=== PATIENT | female | born 1960 | race Caucasian/White ===

== ENCOUNTER 2024-01-31 09:58 | Outpatient (RCR) | payer BC, SELFPAY | END 2024-02-07 23:59 | disposition home or self-care (01) | LOC: OID 09:58 | PROVIDERS: ATTENDING PHYSICIAN Internal Medicine Endocrinology, Diabetes & Metabolism; FAMILY PHYSICIAN Family Medicine ==

== ENCOUNTER 2024-10-28 11:33 | Emergency (ER) | payer BC, SELFPAY ==
[2024-10-28 11:38] VITALS: BP 128/86
[2024-10-28 11:46] VITALS: BP 125/80
[2024-10-28 12:11] LABS: % Basophils 1.2 % (0-2); % Eosinophils 1.7 % (0-6); % Immature Granulocytes 0.5 % (0-0.5); % Lymphocytes 27.2 % (20.5-51.1); % Monocytes 18.8 % (1.7-9.3); % Neutrophils 50.6 % (42.2-75.2); Absolute Basophils 0.1 10^3/uL (0-0.2); Absolute Eosinophils 0.1 10^3/uL (0-0.7); Absolute Lymphocytes 1.8 10^3/uL (1.2-3.4); Absolute Monocytes 1.2 10^3/uL (0.1-0.6); Absolute Neutrophils 3.3 10^3/uL (1.4-6.5); Hematocrit 48.1 % (37.0-47.0); Hemoglobin 16.2 g/dL (12.0-16.0); Mean Corp Hgb Conc. 33.7 g/dL (33.0-37.0); Mean Corpuscular Hgb 30.9 pg (27.0-31.0); Mean Corpuscular Volume 91.6 fL (81.0-99.0); Mean Platelet Volume 9.7 fL (7.4-10.4); Nucleated Red Blood Cells % 0 %; Platelet Count 332 10^3/uL (130-400); Red Blood Cell Count 5.25 10^6/uL (4.20-5.40); Red Cell Dist. Width 13.1 % (11.5-14.5); White Blood Cell Count 6.6 10^3/uL (4.8-10.8)
[2024-10-28 12:38] LABS: Troponin I < 0.012 ng/ml
--- NOTE | 2024-10-28 12:49 | ED.GENMED ---
History of Present Illness
<Colt Michel DO - Last Filed: 10/28/24 14:24>
General
Chief Complaint: Cardiac Symptoms
Source: patient
Exam Limitations: none
Time Seen by Provider: 10/28/24 11:59
Nursing documentation reviewed up to this point in time: agreed with
History of Present Illness
History of Present Illness:
64-year-old female presents the emergency department complaining of chest pain that began 1 hour prior to arrival. It radiates to her back. She follows at [facility] for cardiology. She has no past cardiology history.
Past History
<Colt Michel DO - Last Filed: 10/28/24 14:24>
Past History
ED Past Medical History: Cancer (Breast)
Social History
Tobacco: Non-smoker
Alcohol: None
Drug: None
Personal:
Living: with family
Review of Systems
<Colt Michel, DO - Last Filed: 10/28/24 14:24>
Review of Systems
Allergies reviewed?: Yes
All Other Systems: Not applicable
Constitutional: Reports no symptoms
EENT: Reports no symptoms
Respiratory: Reports no symptoms
Cardiac: Reports chest pain
ABD/GI: Reports no symptoms
: Reports no symptoms
Musculoskeletal: Reports no symptoms
Skin: Reports no symptoms
Neurological: Reports no symptoms
Endocrine: Reports no symptoms
Hematologic/Lymphatic: Reports no symptoms
Psychiatric: Reports no symptoms
Phy Exam
<Colt Michel DO - Last Filed: 10/28/24 14:24>
Physical Exam
Physical Exam:
Physical Exam
General: no apparent distress, not acutely ill
Neck: supple. no meningeal signs. normal posterior pharynx
Heart: s1/s2 regular rate and rhythm, no murmur. equal radial
pulses.
HEENT: Pupils equal round reactive to light, EOMI
Lungs: no acute respiratory distress. clear bilaterally
Abdomen: normal bowel sounds. not tender. no CVAT
Neuro: alert and oriented. no focal neurological deficits cranial nerves II through XII intact
Skin: no rash
Psychiatric: well kept. interactive and cooperative
Extremities: no edema. no calf tenderness. negative homans. good distal pulses
Course
<Colt Michel, DO - Last Filed: 10/28/24 14:24>
Orders/Labs/Results
Orders:
Orders
10/28/24 11:34
Electrocardiogram (*1) Urgent
Reason for Study: Abdominal Pain
EKG- Treatment ONCE
10/28/24 12:01
Troponin I Urgent
10/28/24 12:02
Complete Blood Count/With Diff Urgent
10/28/24 12:34
IV Insert/Care/Rem.- Treatment PRN
10/28/24 12:40
Comprehensive Metabolic Panel Urgent
Lipase Urgent
10/28/24 12:50
EKG- Treatment ONCE
10/28/24 14:02
CT Chest/abd/pelvis Angio W/wo Urgent
Comment:
Reason For Exam: chest pain radiating to back
10/28/24 14:56
Troponin I Urgent
10/28/24 15:00
Electrocardiogram (*1) Urgent
Reason for Study: Chest Pain
Abnormal Lab Results
10/28/24 10/28/24
12:02 12:40
Hgb 16.2 H g/dL
(12.0-16.0)
Hct 48.1 H %
(37.0-47.0)
Absolute Monos (auto) 1.2 H 10^3/uL
(0.1-0.6)
Monocytes % 18.8 H %
(1.7-9.3)
Sodium 133 L mmol/L
(135-145)
BUN 29 H mg/dl
(7-17)
AST 46 H U/L
(14-36)
ALT 67 H U/L
(0-35)
10/28/24 12:02
10/28/24 12:40
Vital Signs
Initial and Last Documented VS:
Initial Vital Signs
Temp Pulse Resp BP Pulse Ox
98.2 F 76 16 128/86 98
10/28/24 11:38 10/28/24 11:38 10/28/24 11:38 10/28/24 11:38 10/28/24 11:38
Last Documented Vital Signs
Temp Pulse Resp BP Pulse Ox
98.2 F 69 15 104/68 98
10/28/24 11:38 10/28/24 16:00 10/28/24 16:00 10/28/24 16:00 10/28/24 16:00
<Sudeep Urena MD - Last Filed: 10/28/24 20:41>
Orders/Labs/Results
Orders:
Orders
10/28/24 11:34
Electrocardiogram (*1) Urgent
Reason for Study: Abdominal Pain
EKG- Treatment ONCE
10/28/24 12:01
Troponin I Urgent
10/28/24 12:02
Complete Blood Count/With Diff Urgent
10/28/24 12:34
IV Insert/Care/Rem.- Treatment PRN
10/28/24 12:40
Comprehensive Metabolic Panel Urgent
Lipase Urgent
10/28/24 12:50
EKG- Treatment ONCE
10/28/24 14:02
CT Chest/abd/pelvis Angio W/wo Urgent
Comment:
Reason For Exam: chest pain radiating to back
10/28/24 14:56
Troponin I Urgent
10/28/24 15:00
Electrocardiogram (*1) Urgent
Reason for Study: Chest Pain
Abnormal Lab Results
10/28/24 10/28/24
12:02 12:40
Hgb 16.2 H g/dL
(12.0-16.0)
Hct 48.1 H %
(37.0-47.0)
Absolute Monos (auto) 1.2 H 10^3/uL
(0.1-0.6)
Monocytes % 18.8 H %
(1.7-9.3)
Sodium 133 L mmol/L
(135-145)
BUN 29 H mg/dl
(7-17)
AST 46 H U/L
(14-36)
ALT 67 H U/L
(0-35)
10/28/24 12:02
10/28/24 12:40
Vital Signs
Initial and Last Documented VS:
Initial Vital Signs
Temp Pulse Resp BP Pulse Ox
98.2 F 76 16 128/86 98
10/28/24 11:38 10/28/24 11:38 10/28/24 11:38 10/28/24 11:38 10/28/24 11:38
Last Documented Vital Signs
Temp Pulse Resp BP Pulse Ox
98.2 F 69 15 104/68 98
10/28/24 11:38 10/28/24 16:00 10/28/24 16:00 10/28/24 16:00 10/28/24 16:00
<Colt Michel, DO - Last Filed: 10/28/24 14:24>
MDM/Problems Addressed
Differential Diagnosis Includes:
Aortic dissection, ACS, PE
MDM/Problems Addressed:
64-year-old female with chest pain radiating to her back. EKG shows left bundle branch block, which is old per patient. Initial troponin negative. Repeat troponin pending at about 3 PM, CT aortic angiography pending.
Chronic conditions affecting care: Cancer (Breast)
<Colt Michel DO - Last Filed: 10/28/24 14:24>
*Pulse Oximetry
Patient hypoxic: no
*EKG
Interpreted by ED Provider?: Yes
EKG Intrepretation Date: 10/28/24
EKG Intrepretation Time: 11:36
Interpretation: abnormal
Comparison EKG: no comparison EKG present
Heart Rate: 77
Rate: normal
Rhythm: sinus
[place]: left axis deviation
Interval: normal interval
QRS Pattern: left bundle branch block
Ischemia: no ischemia
*[employer]ctor Interpretation
Rate: normal
Interpretation: normal
Heart Rate: 78
Rhythm: sinus
<Sudeep Urena MD - Last Filed: 10/28/24 20:41>
*Critical Care Note
Total Time (30-74mins, 75-104mins- exclusive of procedures): Not Applicable
<Sudeep Urena MD - Last Filed: 10/28/24 20:41>
Update Note
Update Note:
CT chest report reviewed and discussed with patient, as well as repeat blood work, i.e. troponin. Patient also remains asymptomatic during observation, with stable vital signs. CT chest incidentally noted gallstones, which patient knew about,
raising the possibility of biliary colic as etiology for her presentation. Patient states that she already has an appointment with surgeon in January. In addition, patient already has echocardiogram ordered by her health care consultant this Saturday, with whom
she will follow-up upon discharge. Patient given copy of CT on a disk, to be reviewed by her health care consultant as well.
ED Attending Note
<Colt Michel DO - Last Filed: 10/28/24 14:24>
-
Portions of this chart may have been created with voice recognition software.� Occasional wrong word or��sound alike� substitutions may have occurred due to the inherent limitations of voice recognition software.
Discharge Plan
Departure
Patient Disposition: Home (Routine Discharge)
Date of Disposition: 10/28/24
Time of Disposition: 16:26
Patient with high blood pressure during this ER visit?: Yes
Condition: Good
Discharge Problem:
Chest pain
Instructions: Chest Pain (DC), Gallstones (DC)
Referrals:
Tatiana Francisco MD [Family Provider] -
Activity Restrictions/Additional Instructions:
As discussed, please follow-up with your health care consultant as well as surgeon for reevaluation.
Interventions
Interventions:
*Risk Screen - Suicide Last Done: 10/28/24 11:38
*General Assessment Last Done: 10/28/24 11:38
*Neglect/Abuse Screening Last Done: 10/28/24 14:09
*ED COVID-19 Vaccine History Last Done: 10/28/24 11:38
*Nursing Disposition Last Done: 10/28/24 16:54
ED- Cardiac Assessment Last Done: 10/28/24 12:40
ED- Pulmonary Assessment Last Done: 10/28/24 12:40
Discharge Date and Time
Discharge Date/Time: 10/28/24 16:55
Print Language: UKRAINIAN
[2024-10-28 13:00] VITALS: BP 107/63
[2024-10-28 13:07] LABS: ALT (SGPT) 67 U/L (0-35); AST (SGOT) 46 U/L (14-36); Albumin 3.8 g/dl (3.5-5.0); Alkaline Phosphatase 74 U/L (38-126); Blood Urea Nitrogen 29 mg/dl (7-17); Calcium 8.7 mg/dl (8.4-10.2); Carbon Dioxide 28 mmol/L (22-30); Chloride 99 mmol/L (98-107); Glucose 98 mg/dl (70-99); Lipase 176 U/L (23-300); Potassium 4.6 mmol/L (3.5-5.1); Sodium 133 mmol/L (135-145); Total Bilirubin 0.9 mg/dl (0.2-1.3); Total Protein 6.7 g/dl (6.3-8.2); eGFR > 60.00
[2024-10-28 14:00] VITALS: BP 91/65
[2024-10-28 15:00] VITALS: BP 112/73
[2024-10-28 15:37] LABS: Troponin I < 0.012 ng/ml
[2024-10-28 16:00] VITALS: BP 104/68
== END 2024-10-28 16:55 | disposition home or self-care (01) ==
LOC: EMR 11:33
PROVIDERS: EMERGENCY PHYSICIAN Emergency Medicine; FAMILY PHYSICIAN Family Medicine; REFERRING PHYSICIAN Internal Medicine Cardiovascular Disease
DX: R07.89 Other chest pain (principal); I44.7 Left bundle-branch block, unspecified; C50.919 Malignant neoplasm of unspecified site of unspecified female breast; Z85.3 Personal history of malignant neoplasm of breast
CPT/HCPCS: 99284; 71275; 74174; 80053; 83690; 84484; 85025; 93005; Q9967

== ENCOUNTER 2024-10-30 15:40 | Inpatient (IN) | payer BC, SELFPAY ==
[2024-10-30] VITALS (12 sets, daily range): BP systolic 92–134; BP diastolic 59–94; BMI 20.3
[2024-10-30 12:31] LABS: % Basophils 1.4 % (0-2); % Eosinophils 1.7 % (0-6); % Immature Granulocytes 0.3 % (0-0.5); % Lymphocytes 26.5 % (20.5-51.1); % Monocytes 16.4 % (1.7-9.3); % Neutrophils 53.7 % (42.2-75.2); Absolute Basophils 0.1 10^3/uL (0-0.2); Absolute Eosinophils 0.1 10^3/uL (0-0.7); Absolute Lymphocytes 1.7 10^3/uL (1.2-3.4); Absolute Neutrophils 3.4 10^3/uL (1.4-6.5); Hematocrit 46.8 % (37.0-47.0); Hemoglobin 15.4 g/dL (12.0-16.0); Mean Corp Hgb Conc. 32.9 g/dL (33.0-37.0); Mean Corpuscular Hgb 30.7 pg (27.0-31.0); Mean Corpuscular Volume 93.2 fL (81.0-99.0); Mean Platelet Volume 9.4 fL (7.4-10.4); Nucleated Red Blood Cells % 0 %; Platelet Count 336 10^3/uL (130-400); Red Blood Cell Count 5.02 10^6/uL (4.20-5.40); Red Cell Dist. Width 13.3 % (11.5-14.5); White Blood Cell Count 6.4 10^3/uL (4.8-10.8)
[2024-10-30 12:37] LABS: INR 1.02; PT 13.7 Sec (11.4-14.6)
[2024-10-30 12:47] LABS: ALT (SGPT) 60 U/L (0-35); AST (SGOT) 42 U/L (14-36); Albumin 4.4 g/dl (3.5-5.0); Alkaline Phosphatase 95 U/L (38-126); Blood Urea Nitrogen 25 mg/dl (7-17); Carbon Dioxide 26 mmol/L (22-30); Chloride 104 mmol/L (98-107); Glucose 99 mg/dl (70-99); Potassium 4.5 mmol/L (3.5-5.1); Sodium 138 mmol/L (135-145); Total Protein 7.5 g/dl (6.3-8.2); eGFR > 60.00
[2024-10-30 12:51] LABS: Troponin I < 0.012 ng/ml
[2024-10-30] MEDS: ASPIRIN 325 MG PO (13:11)
--- NOTE | 2024-10-30 13:21 | CON.CAR ---
Consultation
Consultation Request
Date/Time Consultation Requested: 10/30/2024
Date/Time Consultation Performed: 10/30/2024
Performing Provider: Iona Bose PA-C for Dr. Fairbanks
Reason for Consultation: Chest pain, reduced ejection fraction
Medical History
-
History of Present Illness:
Patient is a 64-year-old female with past medical history significant for cardiomyopathy, left bundle branch block discovered in 2023, triple negative breast cancer status post bilateral mastectomy and TAHSBO who follows routinely with Dr. Dominguez
of cardiology. Patient reports she recently had diverticulitis flare and required antibiotics. Since that time she has noticed ongoing weight loss ~10 lbs and increased indigestion/reflux symptoms. She was seen in emergency department 10/28/2024
with chest pain radiating into the back. Troponin was negative. CT angiogram no acute pathology in chest, abdomen or pelvis. There was no evidence of aortic dissection. She was noted to have a 4 mm gallstone and an oval hypodense hepatic lesion
likely cyst or hemangioma. 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 Norma Dominguez who had her get an echocardiogram today which showed newly reduced ejection fraction of 15 to 20% with progression of valvular disease and she was
referred to emergency department 10/30/2024. EKG admission shows sinus rhythm with left bundle branch block. Laboratory studies were rather unremarkable except mildly elevated AST and ALT 42/60. Troponin was negative. proBNP 4900. She continues
to have some mild GERD/reflux symptoms and dyspnea on exertion with activities like walking up steps or bending over to cotton picking machine operator stuff. Currently she denies chest pain or shortness of breath at rest.
PMH:
Cardiomyopathy
LBBB diagnosed in 2023
Triple negative breast cancer
Status post bilateral mastectomy 2013
Status post chemo with Adriamycin, cytotaxin and Taxol 2013
IBS
Diverticulitis
Gallstones
Past Medical History
Past Medical History: Other (see HPI)
Past Surgical History: Gynecological (TAHSBO, bilateral mastectomy 2013) and Other (Splenectomy, oral surgeries)
Social History
Tobacco: Non-Smoker
Alcohol: None
Drug: None
Personal:
Living: With Family
Allergies / Home Medications
Allergy/AdvReac Type Severity Reaction Status Date / Time
'OTC antibiotics' Allergy Unknown Uncoded 10/28/24 11:44
Review of Systems
-
History Source: Patient
All other systems: Negative unless noted
Physical Exam
Vital Signs
Temp Pulse Resp BP Pulse Ox
98.4 F 79 16 134/94 98
10/30/24 11:56 10/30/24 11:56 10/30/24 11:56 10/30/24 11:56 10/30/24 11:56
GEN: No distress, awake, Ox3, thin appearing female
HEENT: supple, anicteric, mmm
LUNGS: CTA, no wheezes/rales
CV: Reg, S1/S2, no murmur, rub or gallop
ABD: soft, BS+, NT/ND
EXT: No edema, clubbing or cyanosis
NEURO: Gross non-focal
SKIN: No rash, warm, dry, pink
Lab Results
10/30/24 12:17
10/30/24 12:17
Troponin I < 0.012 ng/ml 10/30/24 12:17
Impression / Plan
-
Primary outpt package yarns drying machine operator: Dr. Norma Dominguez
Impression:
Presents 10/30/2024 with progressively worsening dyspnea on exertion x 2 months and recent chest pain
Cardiomyopathy, EF 15-20% on echo 10/30/2024
Abnormal LFTs
Acute heart failure with reduced ejection fraction, proBNP 4900
LBBB diagnosed in 2023
Triple negative breast cancer
Status post bilateral mastectomy 2013
Status post chemo with Adriamycin, cytotaxin and Taxol 2013
IBS
Diverticulitis
Gallstones
Echo 10/30/2024 ([facility]): EF 15-20%, akinetic/dyskinetic septum other zuluaga hypokinetic. NL RV size and function. Stage 2 DD. Mild-moderate MR/TR. Trivial pericardial effusion. Interatrial septum is bowed into right atrial consistent with increased left
atrial pressure. No trans atrial shunt appreciated on doppler.
Echo 10/04/2023 ([facility]): EF 45-50% with top-normal LV size and a septal contraction abnormality. Trivial valvular regurgitation noted
Plan:
-Presents 10/30/2024 with progressively worsening dyspnea on exertion x 2 months and recent increase in reflux/GERD symptoms as well as chest pain.
-Workup in emergency department 10/28/2024 for chest pain was unremarkable with negative troponins. Once again troponins are negative in emergency department today.
Cardiomyopathy
-Found to have newly reduced ejection fraction previously 45 to 50% now 15 to 20% on outpatient echo ([facility])
-Will need left heart catheterization
-Would attempt GDMT as blood pressure allows as she has longstanding history of hypotension. Patient was only taking baby aspirin prior to admission
Heart failure with reduced ejection fraction, proBNP 4900. Although patient does not appear to be acutely volume overload on examination.
-We consider gentle diuresis
-Eventual GDMT as blood pressure allows
Outpatient cardiology records have been requested but not yet received after second attempt
HPI 10/30/2024:
Patient is a 64-year-old female with past medical history significant for cardiomyopathy, left bundle branch block discovered in 2023, triple negative breast cancer status post bilateral mastectomy and TAHSBO who follows routinely with Dr. Dominguez
of cardiology. Patient reports she recently had diverticulitis flare and required antibiotics. Since that time she has noticed ongoing weight loss and increased indigestion/reflux symptoms. She was seen in emergency department 10/28/2024 with
chest pain radiating into the back. Troponin was negative. CT angiogram no acute pathology in chest, abdomen or pelvis. There was no evidence of aortic dissection. She was noted to have a 4 mm gallstone and an oval hypodense hepatic lesion
likely cyst or hemangioma. 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 Norma Dominguez who had her get an echocardiogram today which showed newly reduced ejection fraction of 15 to 20% with progression of valvular disease and she was
referred to emergency department 10/30/2024. EKG admission shows sinus rhythm with left bundle branch block. Laboratory studies were rather unremarkable except mildly elevated AST and ALT 42/60. Troponin was negative. proBNP 4900. She continues
to have some mild GERD/reflux symptoms and dyspnea on exertion with activities like walking up steps or bending over to cotton picking machine operator stuff. Currently she denies chest pain or shortness of breath at rest.
Data Reviewed
-
EKG: Report Reviewed by me, Discussed with Physician, Discussed with Patient and Discussed with Family
Medical Tests (Nuc Med, Echo etc): Report Reviewed by me, Discussed with Physician, Discussed with Patient and Discussed with Family
Labs: Labs Reviewed by me
Old Records: Requested (called twice)
[2024-10-30] MEDS: HEPARIN 25000 UNITS/250 ML IV (13:54)
[2024-10-30] MEDS: HEPARIN 3400 UNITS IV (13:55)
[2024-10-30 13:58] LABS: APTT 26.4 Sec (23.4-35.0)
--- NOTE | 2024-10-30 14:09 | ED.GENMED ---
History of Present Illness
General
Chief Complaint: Chest Pain
Source: patient
Exam Limitations: none
Time Seen by Provider: 10/30/24 12:47
Nursing documentation reviewed up to this point in time: agreed with
History of Present Illness
History of Present Illness:
64-year-old female presenting to the emergency department today with concerns of ongoing chest pain as well as echo showing significantly reduced ejection fraction. She was seen few days ago had a chest pain rule out followed up closely with
cardiology and echo today showing ejection fraction of 15 to 20%. She has had some ongoing chest pressure to the central chest rating to the back as well as shortness of breath. She did not take aspirin today. Denies any numbness weakness or
vomiting.
Past History
Past History
ED Past Medical History: Cancer (Breast)
Social History
Tobacco: Non-smoker
Alcohol: None
Drug: None
Personal:
Living: with family
Review of Systems
Review of Systems
Allergies reviewed?: Yes
All Other Systems: ROS reviewed and negative except as documented in HPI and ROS
Phy Exam
Physical Exam
Physical Exam:
GENERAL: Alert , in no apparent distress
EYE: pupils equal and reactive
NECK: Supple, no significant adenopathy.
ENT: o/p clr, mmm.
CARDIAC: Regular rate and rhythm .
LUNGS: Clear breath sounds bilaterally, no acute respiratory distress, no wheezes/rales/rhonchi
ABDOMEN: Soft, without focal tenderness, no r/g, no cvat
NEUROLOGICAL: Alert and oriented, no focal neuro deficits
SKIN: Warm and dry, skin intact.
MUSCULOSKELETAL: No edema, well perfused.
PSYCH: Normal and appropriate interaction.
Scores
Heart Score for Chest Pain Patients
STEMI patient?: No
History: Moderately Suspicious
ECG: Nonspecific Repolarization
Age: >/= 65 years
Risk Factors: >/= 3 Risk Factors or History of CAD
Troponin: </= Normal Limit
Heart Score for Chest Pain Patients: 6
Heart Score Risk: 20.3% MACE over next 6 weeks
Course
Orders/Labs/Results
Orders:
Orders
10/30/24 11:48
Electrocardiogram (*1) Urgent
Reason for Study: Chest Pain
EKG- Treatment ONCE
10/30/24 12:17
Complete Blood Count/With Diff Urgent
Comprehensive Metabolic Panel Urgent
NT-proBNP Urgent
Comment: ADD ON
PT/INR [Prothrombin Time] Urgent
Troponin I Urgent
10/30/24 13:02
Aspirin 325 mg PO NOW STA
10/30/24 13:21
Heparin 3,400 units IV NOW STA
Nursing to Place Non Medication Order As Directed
Physician Order: PTT 6 hours after initial start of Heparin infusion
Above order entered?: Yes
10/30/24 13:30
Heparin 18258 Units/250 ml 25,000 units in 250 ml IV PER PROTOCOL
Weight to be used for heparin protocol in kilograms (kg):: 57
Protocol:: Cardiac Tx/Acute Coronary
PTT Goal Range to be used:: PTT 73 to 111 seconds
Order type:: Initial
INITIAL Infusion Dose (UNITS/KG/hr) & then follow protocol:: 15 units/kg/hr
Infusion Dose in UNITS/hr & then follow protocol (UNITS/hr):: 850
INFUSION RATE in mL/hr & then follow protocol (mL/hr):: 8.5
PTT less than or equal to 64 seconds:: Increase rate by 200 units/hr (+ 2 mL/hr)
PTT 64.1 to 72.9 seconds:: Increase rate by 100 units/hr (+ 1 mL/hr)
PTT 73 to 111 seconds:: Target Range. No change in rate.
PTT 111.1 to 130.9 seconds:: Decrease rate by 100 units/hr (- 1 mL/hr)
PTT 131 to 199.9 seconds:: HOLD for 1 hr. Then decrease rate by 200 units/hr (- 2 mL/hr)
PTT greater than or equal to 200 seconds:: HOLD for 2 hrs & Notify Provider. Then decrease by 200 units/hr (-
2 mL/hr)
Lab follow-up:: Each change, PTT q6h until 2 consecutive are therapeutic. Then PTT
daily.
10/30/24 13:38
PTT Urgent
Comment: Obtain baseline before beginning heparin infusion if not already collected
10/30/24 13:42
Add On- LAB Routine
Tests Added?: add on pro-BNP
10/30/24 19:54
PTT Urgent
Abnormal Lab Results
10/30/24
12:17
MCHC 32.9 L g/dL
(33.0-37.0)
Absolute Monos (auto) 1.0 H 10^3/uL
(0.1-0.6)
Monocytes % 16.4 H %
(1.7-9.3)
BUN 25 H mg/dl
(7-17)
AST 42 H U/L
(14-36)
ALT 60 H U/L
(0-35)
10/30/24 12:17
10/30/24 12:17
Vital Signs
Initial and Last Documented VS:
Initial Vital Signs
Temp Pulse Resp BP Pulse Ox
98.4 F 79 16 134/94 98
10/30/24 11:56 10/30/24 11:56 10/30/24 11:56 10/30/24 11:56 10/30/24 11:56
Last Documented Vital Signs
Temp Pulse Resp BP Pulse Ox
98.4 F 72 15 134/94 100
10/30/24 11:56 10/30/24 13:15 10/30/24 13:15 10/30/24 11:56 10/30/24 13:15
MDM/Problems Addressed
MDM/Problems Addressed:
64-year-old female presenting to the emergency department today with concerns of abnormal echo as an outpatient. Has had some ongoing chest pain and shortness of breath. On arrival here vital signs are normal patient no distress. Heart and lung
sounds are normal. EKG is unchanged over the past few days. Troponin is negative. Case discussed with cardiology recommending likely catheterization later today. Patient given a dose of aspirin as well as started on heparin. Stable throughout
ER stay otherwise admitted pending catheterization.
*Critical Care Note
Total Time (30-74mins, 75-104mins- exclusive of procedures): Not Applicable
ED Attending Note
-
Portions of this chart may have been created with voice recognition software.� Occasional wrong word or��sound alike� substitutions may have occurred due to the inherent limitations of voice recognition software.
Discharge Plan
Departure
Patient Disposition: Admit
Date of Disposition: 10/30/24
Time of Disposition: 15:04
Admit to: Telemetry
Admit to doctor: Kassandra
Presentation/result/management discussed w/ accepting MD/DO: Hospitalist
Patient with high blood pressure during this ER visit?: No
Condition: Fair
Covid-19: Not Applicable
Discharge Problem:
Chest pain, Abnormal echocardiogram
Prescriptions:
No Action
aspirin 81 mg Tablet,Delayed Release (Dr/Ec)
81 mg PO DAILY
calcium carbonate [Calcium 500] 500 mg calcium (1,250 mg) Tablet
1,000 mg PO TID
ascorbic acid (vitamin C) [Vitamin C] 500 mg Tablet
500 mg PO BID
hyoscyamine sulfate 0.125 mg Tablet, Sublingual
0.125 mg PO QIDPRN PRN (Reason: spasms)
ibuprofen [Advil] 200 mg Tablet
400 mg PO Q6HPRN PRN (Reason: mild pain)
magnesium oxide 500 mg magnesium Tablet
500 mg PO BID
cholecalciferol (vitamin D3) [Vitamin D3] 50 mcg (2,000 unit) Tablet
50 mcg PO DAILY
Referrals:
Tatiana Francisco MD [Family Provider] -
Interventions
Interventions:
*Risk Screen - Suicide Last Done: 10/30/24 11:56
*Neglect/Abuse Screening Last Done: 10/30/24 11:56
ED- Fall Risk Assessment Last Done: 10/30/24 13:05
ED- Cardiac Assessment Last Done: 10/30/24 13:05
Discharge Date and Time
Print Language: SLOVENIAN
[2024-10-30 14:35] LABS: NT-proBNP 4900 pg/ml
--- NOTE | 2024-10-30 15:57 | HPS.HSE ---
Addendum entered and electronically signed by Sudeep Salinas MD 10/30/24 21:21:
Attending Addendum-
I performed a history and physical exam of the patient and discussed his management with the resident. I reviewed the resident's note and agree with the documented findings and plan of care CC/HPI- sent to ed at request of OP early childhood coordinator s/p
abnormal echo. EF found to be significantly decreased from 45-50% last month to 15-20%. Patient seen in ED on 10/28 for progressive CP rad to back. CTA done r/o aortic dissection and sent home. Has been having progressive SOB which promoted f/u
appt with OP early childhood coordinator Dr. Dominguez. Patient states that she that continues to have progressive BRISENO. CP patient is intermittent rad to back. No NV palps abd pain fevers chills. Full 12 point ROS reviewed and negative except as documented Exam-
vitals reviewed in EMR GEN-NAD heart RRR No M/R/G ausculated Lungs CTA B/L abd soft NT ND pos BS LE no edema
Plan:
# Cardiomyopathy unknown etiology
# HFrEF
- start hep gtt
- asa x 1 given stat
- trend trops
- BNP-4900
- NPO for cardiac cath later today
- start GDMT after cath
# Transaminitis
- trend
# H/O Breast ca s/p chemo
# LBBB- chronic
# IBS- cont hyocyamine prn
DVTp- on hep gtt
Code Full
ACP
Patient consented to discuss, was with daughter, time spent explanation of advance directives, changes in health status, patient�s health care wishes if the patient becomes unable to make health decisions, goals of care, code status, and prognosis-
16 minutes
Time spent coordinating care, review of plan of care with resident, personally reviewed previous records in EMR, med rec, labs, radiology, d/w nursing, cards, family total time documented is exclusive of any additional time listed that was spent in
advance care planning discussion -�75 minutes
Original Note:
Family Physician
-
Family Physician: Tatiana Francisco
Chief Complaint
-
Chest pain
History of Present Illness
64-year-old female with known past medical history of triple negative breast cancer more than 10 years ago, cardiomyopathy, IBS, diverticulitis, cholelithiasis, known left bundle branch block since 2023; followed by cardiology outpatient( DrFelecia
Norma Dominguez), presented with ongoing progressive chest pain. She was seen in the ER on 10/28/24 for the same concern. Blood work, CT angio chest/abdomen pelvis and EKG at that time was unremarkable and she was discharged. She was informed
regarding incidentally noted gallstone which she had the knowledge already. She was discharged to follow-up with outpatient cardiology for planned echocardiogram.
Today she reported that she continues to have the same chest pain which feels like a tight band around her chest which sometimes radiates towards her mid back. She denies any other symptoms including nausea, vomiting, trouble breathing. However
experience intermittent dyspnea on exertion. She completed an echo recommended by outpatient early childhood coordinator which showed newly reduced ejection fraction of 15 to 20% with progression of valvular disease and she was referred to the emergency
department.
Of note she had a recent flare up of diverticulitis which required antibiotics.
In the ER EKG showed sinus rhythm with left bundle branch block. Lab work was unremarkable except mildly elevated AST and ALT. Troponin was negative. proBNP 4900. Cardiology was consulted and she was admitted for further evaluation(possible
cardiac catheterization)
Medical History
Past Medical History
Past Medical History: Reports Cancer (Triple negative breast) and Other (Cardiomyopathy, left bundle branch, IBS, diverticulitis, cholelithiasis)
Past Surgical History: Reports Gynocological (Bilateral mastectomy) and Other (Spleen active)
Social History
Tobacco: Non-smoker
Alcohol: None
Drug: None
Personal:
Living: With Family
Family History
Family History: Not pertinent
Allergies / Home Medications
Allergies reflects when Allergies were last updated in [employer].
Home Medications with original date entered in [employer]
Allergy/Medication List:
Allergies
Allergy/AdvReac Type Severity Reaction Status Date / Time
'OTC antibiotics' Allergy Unknown Uncoded 10/28/24 11:44
Home Medications
ascorbic acid (vitamin C) 500 mg tablet (Vitamin C) 500 mg PO BID 10/30/24
aspirin 81 mg tablet,delayed release 81 mg PO DAILY 10/30/24
calcium carbonate 1,000 mg PO TID 10/30/24
cholecalciferol (vitamin D3) 50 mcg (2,000 unit) tablet (Vitamin D3) 50 mcg PO DAILY 10/30/24
hyoscyamine sulfate 0.125 mg sublingual tablet 0.125 mg PO QIDPRN PRN spasms 10/30/24
ibuprofen 200 mg tablet (Advil) 400 mg PO Q6HPRN PRN mild pain 10/30/24
magnesium oxide 500 mg PO BID 10/30/24
Review of Systems
-
History Source: Patient
EENT: Reports No Symptoms
Respiratory: Reports No Symptoms
Cardiac: Reports Other (Chest tightness)
Abdomen/GI: Reports No Symptoms
: Reports No Symptoms
Neurological: Reports No Symptoms
Psych: Reports Calm
Physical Exam
Vital Signs
Vital Signs
Temp Pulse Resp BP Pulse Ox
98.4 F 73 16 134/94 96
10/30/24 11:56 10/30/24 15:00 10/30/24 15:00 10/30/24 11:56 10/30/24 15:00
Physical Exam
General: Well Developed, Well Nourished and No Apparent Distress
HEENT: NormoCephalic and Anicteric
Respiratory: Clear
Cardiac: S1/S2 and Regular Rhythm; No Murmur, Rub, Gallop or Peripheral Edema
GI: Soft, Non Tender and Non Distended
Skin: Warm and Dry
Neuro: Awake, Alert and Oriented
Psych: Calm
Laboratory Results
-
10/30/24 12:17
10/30/24 12:17
Laboratory Results
PT 13.7 Sec (11.4-14.6) 10/30/24 12:17
INR 1.02 10/30/24 12:17
APTT 26.4 Sec (23.4-35.0) 10/30/24 13:38
Total Bilirubin 1.0 mg/dl (0.2-1.3) 10/30/24 12:17
AST 42 U/L (14-36) H 10/30/24 12:17
ALT 60 U/L (0-35) H 10/30/24 12:17
Alkaline Phosphatase 95 U/L (38-126) 10/30/24 12:17
Troponin I < 0.012 ng/ml 10/30/24 12:17
Data Reviewed
-
Medical Tests (Nuc Med, Echo, EKG etc): Report Reviewed by me
Lab Data: Labs Reviewed by me, Discussed with Physician and Discussed with Patient
Impression/Plan
-
64-year-old female with past medical history significant for cardiomyopathy, left bundle branch block presented after abnormal echo with outpatient cardiology.
Echo 10/30/2024 ([facility]): EF 15-20%, akinetic/dyskinetic septum other zuluaga hypokinetic. NL RV size and function. Stage 2 DD. Mild-moderate MR/TR. Trivial pericardial effusion. Interatrial septum is bowed into right atrial consistent with increased left
atrial pressure. No trans atrial shunt appreciated on doppler.
Echo 10/04/2023 ([facility]): EF 45-50% with top-normal LV size and a septal contraction abnormality. Trivial valvular regurgitation noted
# Cardiomyopathy
# HFrEF: New
-- proBNP 4900
-- Tropes negative: Will obtain another 2 to confirm the trend
-- Continue on the heparin drip
-- Does not appear overloaded on physical exam today
-- Status post 1 dose aspirin 325 mg in the ER
-- Cardiology consulted
-- Patient n.p.o. in anticipation of of cardiac cath
-- Eventual GDMT
# Left bundle branch block
--Recent EKG with sinus rhythm and known left bundle branch block
--Followed with Dr. Norma Dominguez outpatient
-- On chronic aspirin 81 mg
# Transaminitis
-- Continue to monitor for now
# IBS
--Patient denies any symptoms at this time
--Completed recent course of antibiotics and not on any chronic medications at this time.
Full code
--- NOTE | 2024-10-30 19:25 | ITS.CL.CATH ---
Utilities Estimator And Drafter - Catheterization
Cardiac Catheterization
Procedure Report:
LEFT AND RIGHT HEART CATHETERIZATION
Date of Procedure: October 30, 2024
Referring: Norma Dudley MD
PROCEDURES:
1. Left heart catheterization, coronary angiogram.
2. Right heart catheterization.
3. Ultrasound-guided access
INDICATION: Worsening cardiomyopathy, LVEF of 15 to 20%
ACCESS:
1. Right radial artery access was attempted however we could not unfortunately successfully advance the wire and therefore this was aborted after multiple attempts.
2. Right common femoral vein, 6 [place] sheath, under ultrasound guidance using a micropuncture kit.
3. Right common femoral artery, 5 [place] sheath under ultrasound guidance using a micropuncture kit
Ultrasound was utilized for vascular access. The radial artery was visualized under ultrasound, and the vessel was patent and pulsatile. An image was stored permanently in the patient's medical record. Under direct ultrasound guidance, a 6 [place]
sheath was inserted into the artery using a micropuncture kit through a modified Seldinger technique.
Given the significantiliofemoral tortuosity, the short 5 [place] sheath was exchanged for a 5 [place] by 23 cm long sheath.
HEMODYNAMICS : (mmHg)
RA (m) : 11
RV (s/d,m) : 53/12, 20
Unfortunately despite multiple attempts and multiple maneuvers we could not advance the [place]-Tej catheter from the RV into the PA to obtain PA pressures, mixed venous saturation and therefore we could not calculate cardiac output/cardiac index.
AO saturation: 97.7% on room air
RA saturation: 79.7 on room air
AO (s/d) : 129/79
LV (s/d) : 126/21
LVEDP : 33
CORONARY FINDINGS
DOMINANCE: Left
LEFT MAIN: Left main is a large-caliber vessel which gives rise to the left anterior descending artery and the left circumflex artery. There is minimal luminal irregularities.
LEFT ANTERIOR DESCENDING: The left anterior descending artery is a medium to large caliber vessel which gives rise to multiple small caliber diagonal branches as it courses to the anterior interventricular groove and wraps around the apex. There is
mild atherosclerotic plaque.
CIRCUMFLEX: The left circumflex artery is a medium to large caliber, dominant vessel which gives rise to multiple small to medium caliber obtuse marginal branches of the left posterior descending artery. There is minimal luminal irregularities.
RIGHT CORONARY ARTERY: The right coronary artery is a small to medium caliber, nondominant vessel with minimal luminal irregularities.
SEDATION: 60 minutes of procedural sedation was utilized. An independent medical staff assistant was present to assist with and help manage the patient's level of consciousness and physiologic status.
RADIATION SUMMARY: Fluoro Time (min): 15.2 Dose (mGy): 165.6, DAP (Gy.cm2) : 16.4
Closure Device: 1. 6 [place] Angio-Seal was utilized over the right common femoral artery with successful hemostasis.
2. Manual pressure was held over the right common femoral venous access with successful hemostasis.
CONCLUSIONS
1. Non-obstructive coronary artery disease. Left dominant circulation.
2. Significantly elevated right left-sided filling pressures.
RECOMMENDATIONS
1. Bedrest per protocol.
2. Aggressive IV diuresis over the weekend with close monitoring of renal function.
3. Optimization of goal-directed medical therapy for nonischemic cardiomyopathy.
4. Eventual referral for outpatient cardiac rehab.
5. Plan for repeat echocardiogram at 3 months as an outpatient to assess LVEF recovery.
Alyssa Fairbanks MD, [facility], [facility]
Copy to: Norma Dudley MD and Tatiana Francisco MD
[2024-10-30 20:18] LABS: APTT 26.9 Sec (23.4-35.0)
[2024-10-30 20:28] LABS: Troponin I 0.025 ng/ml
--- NOTE | 2024-10-30 20:46 | PTCARENOTE ---
Received patient from biology laboratory assistant. SR with a BBB on the monitor, HR in the 70s. VSS on room air. R radial and R femoral dressings CDI, no evidence of hematoma. Oriented pt to room and reinforced activity restrictions. No complaints from pt at this
time, call hearn within reach.
[2024-10-31] VITALS (10 sets, daily range): BP systolic 74–104; BP diastolic 56–72
[2024-10-31 02:21] LABS: Hematocrit 44.5 % (37.0-47.0); Hemoglobin 14.7 g/dL (12.0-16.0); Mean Corpuscular Hgb 30.6 pg (27.0-31.0); Mean Corpuscular Volume 92.7 fL (81.0-99.0); Mean Platelet Volume 9.5 fL (7.4-10.4); Platelet Count 306 10^3/uL (130-400); Red Cell Dist. Width 13.2 % (11.5-14.5)
[2024-10-31 02:43] LABS: ALT (SGPT) 45 U/L (0-35); AST (SGOT) 29 U/L (14-36); Albumin 3.5 g/dl (3.5-5.0); Alkaline Phosphatase 67 U/L (38-126); Blood Urea Nitrogen 18 mg/dl (7-17); Calcium 8.3 mg/dl (8.4-10.2); Carbon Dioxide 26 mmol/L (22-30); Chloride 108 mmol/L (98-107); Estimated Creatinine Clearance 84 ml/min; Glucose 91 mg/dl (70-99); HDL Cholesterol 62 mg/dl; LDL Cholesterol, Calculated 95 mg/dl; Potassium 4.3 mmol/L (3.5-5.1); Sodium 138 mmol/L (135-145); Total Bilirubin 1.3 mg/dl (0.2-1.3); Total Cholesterol 171 mg/dl (50-199); Total Protein 6.2 g/dl (6.3-8.2); Triglyceride 72 mg/dl (10-149); Very Low Density Lipoprotein 14 mg/dl (0-30); eGFR > 60.00
[2024-10-31 03:05] LABS: Troponin I 0.067 ng/ml
--- NOTE | 2024-10-31 05:39 | PTCARENOTE ---
Patient had an elevated troponin level of 0.067. VSS, no complaints of chest pain. Dr. Jessie clark.
--- NOTE | 2024-10-31 07:50 | W.PN.HOSP.TC ---
Today's Communication/Plan
-
see A/P
Assessment / Plan
Assessment / Plan
64-year-old female with known past medical history of triple negative breast cancer more than 10 years ago, cardiomyopathy, IBS, diverticulitis, cholelithiasis, known left bundle branch block since 2023 (followed by cardiology outpatient Dr. Green
Van Why), presented with ongoing progressive chest pain. She was seen in the ER on 10/28/24 for the same concern. Blood work, CT angio chest/abdomen pelvis and EKG at that time was unremarkable and she was discharged. She was informed regarding
incidentally noted gallstone which she had the knowledge already. She was discharged to follow-up with outpatient cardiology for planned echocardiogram.
She completed an echo recommended by outpatient care aide which showed newly reduced ejection fraction of 15 to 20% with progression of valvular disease and she was referred to the emergency department.
On DOA, she reported that she continues to have the same chest pain which feels like a tight band around her chest which sometimes radiates towards her mid back.
Of note she had a recent flare up of diverticulitis which required antibiotics.
In the ER EKG showed sinus rhythm with left bundle branch block. Lab work was unremarkable except mildly elevated AST and ALT. Troponin was negative. proBNP 4900. Cardiology was consulted and she was admitted for further evaluation for cardiac.
A/P:
# nonischemic cardiomyopathy
# HFrEF
s/p cardiac cath 10/30: Non-obstructive coronary artery disease.
s/p hep gtt
Follow troponin trend until peak
BNP 4900
Card recc aggressive IV diuresis. Optimization of goal-directed medical therapy for nonischemic cardiomyopathy.
Plan for repeat echocardiogram at 3 months as an outpatient to assess LVEF recovery.
# Mild Transaminitis likely 2/2 hepatic congestion
trend LFT
# H/O Breast ca s/p chemo
# LBBB- chronic
# IBS- cont hyocyamine prn
DVTp: Lovenox SQ
Code Full
Anticipated Discharge: 24 - 48 hours
Subjective/Interval History
-
Date of Service: October 31, 2024
Objective Data
-
Labs:
Laboratory Results
10/30/24 10/31/24
19:56 02:13
WBC 7.0
Hgb 14.7
Hct 44.5
Plt Count 306
APTT 26.9
Sodium 138
Potassium 4.3
Chloride 108 H
Carbon Dioxide 26
BUN 18 H
Creatinine 0.6
Glucose 91
Calcium 8.3 L
Total Bilirubin 1.3
AST 29
ALT 45 H
Alkaline Phosphatase 67
Vital Signs:
Vital Signs
Temp Pulse Resp BP Pulse Ox
36.8 C 70 18 102/72 98
10/31/24 07:22 10/31/24 05:30 10/31/24 07:22 10/31/24 02:20 10/31/24 07:22
Review of Systems
-
All other systems: Reviewed and negative
Physical Exam
-
General: Well Developed, Well Nourished, No Apparent Distress, Comfortable and Conversant; Negative Respiratory Distress
HEENT: Normocephalic, Atraumatic, Nose Appears Normal and Ears Appear Normal; Negative Oxygen
Respiratory: Clear to Auscultation and Non Labored Respirations; Negative Accessory Resp Muscle Use
Cardiac: Regular Rhythm and S1/S2
GI: Soft, Nontender, Nondistended and Normal Bowel Sounds
Skin: Warm and Dry
Neuro: Awake, Alert, Oriented and AO x 3
Psych: Calm and Intact Judgement/Insight
Data Reviewed
-
Medical Tests (Nuc Med, Echo etc): Report Reviewed by me (cath report) and Discussed with Patient
Labs: Labs Reviewed by me
[2024-10-31] MEDS: VITAMIN D3 (cholecalciferol) 50 MCG PO (09:16)
[2024-10-31 09:49] LABS: Troponin I 0.067 ng/ml
[2024-10-31 09:55] LABS: Magnesium 2.3 mg/dl (1.6-2.3)
--- NOTE | 2024-10-31 12:13 | W.PN.CARDCBS ---
Addendum entered and electronically signed by Kit Isaac DO 10/31/24 13:37:
I saw and examined the patient.
The Car Pilot's note was reviewed and I agree with the note.
Comment:
Patient resting comfortably in bed with daughter at bedside. Notes mild but improving chest tightness and shortness of breath. No lightheadedness, dizziness, palpitations, weakness
GEN: No distress, awake, Ox3, thin appearing female
HEENT: supple, anicteric, mmm
LUNGS: CTA, no wheezes/rales
CV: Reg, S1/S2, no murmur, rub or gallop
ABD: soft, BS+, NT/ND
EXT: No edema, clubbing or cyanosis
NEURO: Gross non-focal
SKIN: No rash, warm, dry, pink
Telemetry sinus rhythm, PAT
A/P as below
� Patient with worsening nonischemic cardiomyopathy status post left heart catheterization which demonstrates nonobstructive CAD. Acute on chronic heart failure with reduced ejection fraction BNP 4900 with evidence of volume overload on exam
� Plan to initiate goal-directed medical therapy and gentle IV diuresis. Patient has existing left bundle branch block diagnosed in 2023, which may contribute to her nonischemic cardiomyopathy. Additionally, she has a history of triple negative
breast cancer status postmastectomy and chemotherapy including Adriamycin which may also contribute to her current condition.
Original Note:
Today's Communication / Plan
-
Gentle IV diuresis
Add Toprol 12.5 mg daily
Cardiac rehab consultation
Heart failure/nutritional consultation
Hopeful addition of SGLT2 inhibitor and/or ESPERANZA/ARB if blood pressure allows
Impression / Plan
-
Primary outpt records management associate: Dr. Norma Dominguez
Impression:
Presents 10/30/2024 with progressively worsening dyspnea on exertion x 2 months and recent chest pain
Nonischemic cardiomyopathy, EF 15-20% on echo 10/30/2024
Nonobstructive coronary artery disease on catheterization 10/30/2024
Abnormal LFTs
Acute heart failure with reduced ejection fraction, proBNP 4900
LBBB diagnosed in 2023
Triple negative breast cancer
Status post bilateral mastectomy 2013
Status post chemo with Adriamycin, cytotaxin and Taxol 2013
IBS
Diverticulitis
Gallstones
Echo 10/30/2024 ([facility]): EF 15-20%, akinetic/dyskinetic septum other zuluaga hypokinetic. NL RV size and function. Stage 2 DD. Mild-moderate MR/TR. Trivial pericardial effusion. Interatrial septum is bowed into right atrial consistent with increased left
atrial pressure. No trans atrial shunt appreciated on doppler.
Echo 10/04/2023 ([facility]): EF 45-50% with top-normal LV size and a septal contraction abnormality. Trivial valvular regurgitation noted
Cardiac catheterization 10/30/2024: Nonobstructive coronary artery disease with left dominant system. Significantly elevated filling pressures,. RA (m) : 11; RV (s/d,m) : 53/12, 20; AO saturation: 97.7% on room air
RA saturation: 79.7 on room air; AO (s/d) : 129/79; LV (s/d) : 126/21; LVEDP : 33; unable to calculate cardiac output/index as [place]-Tej catheter was unable to be advanced from the RV into the PA
Plan:
-Presented 10/30/2024 with progressively worsening dyspnea on exertion x 2 months and recent increase in reflux/GERD symptoms as well as chest pain.
Nonischemic cardiomyopathy/Acute heart failure with reduced ejection fraction, proBNP 4900.
-Found to have newly reduced ejection fraction previously 45 to 50% now 15 to 20% on outpatient echo ([facility])
-Left heart catheterization 10/30/2024 shows nonobstructive coronary artery disease
-Elevated filling pressures, continue IV diuresis
-GDMT as blood pressure allows as she has longstanding history of hypotension. Will first initiate low-dose beta-radhika Toprol 12.5 mg twice a day. Initiate ESPERANZA/ARB or Aldactone as blood pressure allows with diuresis hopefully within next 24 hours
-Case management to perform cost analysis on SGLT2 inhibitor
-Cardiac rehab consultation
-Heart failure/nutritional list consultation
-Discussed repeat echocardiogram in 3 months if ejection fraction remains reduced on optimized GDMT would consider BiV ICD
PAT/SVT
-Initiate low-dose beta-radhika
Outpatient cardiology records have been requested but not yet received after second attempt
Plan discussed with patient, nursing, patient's daughter who is at bedside. I spent 25 minutes with patient and daughter
HPI 10/30/2024:
Patient is a 64-year-old female with past medical history significant for cardiomyopathy, left bundle branch block discovered in 2023, triple negative breast cancer status post bilateral mastectomy and TAHSBO who follows routinely with Dr. Dominguez
of cardiology. Patient reports she recently had diverticulitis flare and required antibiotics. Since that time she has noticed ongoing weight loss and increased indigestion/reflux symptoms. She was seen in emergency department 10/28/2024 with
chest pain radiating into the back. Troponin was negative. CT angiogram no acute pathology in chest, abdomen or pelvis. There was no evidence of aortic dissection. She was noted to have a 4 mm gallstone and an oval hypodense hepatic lesion
likely cyst or hemangioma. Patient was due to see her outpatient records management associate Dr. Norma Dominguez who had her get an echocardiogram today which showed newly reduced ejection fraction of 15 to 20% with progression of valvular disease and she was
referred to emergency department 10/30/2024. EKG admission shows sinus rhythm with left bundle branch block. Laboratory studies were rather unremarkable except mildly elevated AST and ALT 42/60. Troponin was negative. proBNP 4900. She continues
to have some mild GERD/reflux symptoms and dyspnea on exertion with activities like walking up steps or bending over to spanish moss picker stuff. Currently she denies chest pain or shortness of breath at rest.
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
Subjective
Date of Service: October 31, 2024
Patient seen and examined. Patient reports she still notes some mild dyspnea with activity but currently denies chest pain. Denies orthopnea PND or lower extremity edema
Objective
Labs:
10/31/24 02:13
10/31/24 02:13
Labs
Hgb 14.7 g/dL (12.0-16.0) 10/31/24 02:13
Hct 44.5 % (37.0-47.0) 10/31/24 02:13
Plt Count 306 10^3/uL (130-400) 10/31/24 02:13
PT 13.7 Sec (11.4-14.6) 10/30/24 12:17
INR 1.02 10/30/24 12:17
APTT 26.9 Sec (23.4-35.0) 10/30/24 19:56
Sodium 138 mmol/L (135-145) 10/31/24 02:13
Potassium 4.3 mmol/L (3.5-5.1) 10/31/24 02:13
BUN 18 mg/dl (7-17) H 10/31/24 02:13
Creatinine 0.6 mg/dL (0.6-1.0) 10/31/24 02:13
Glucose 91 mg/dl (70-99) 10/31/24 02:13
Troponins
10/30/24 10/30/24 10/31/24
12:17 19:56 02:13
Troponin I < 0.012 0.025 D 0.067 H* D
10/31/24 10/31/24 10/31/24
09:10 14:00 20:00
Troponin I 0.067 H* Cancelled Cancelled
Vital Signs and I&O:
Vital Signs
Temp Pulse Resp BP Pulse Ox
98.4 F 80 18 104/65 98
10/31/24 11:22 10/31/24 09:30 10/31/24 11:22 10/31/24 07:26 10/31/24 11:22
Vital Signs
Temp Pulse Resp BP Pulse Ox
98.4 F 80 18 104/65 98
10/31/24 11:22 10/31/24 09:30 10/31/24 11:22 10/31/24 07:26 10/31/24 11:22
Physical Exam
Physical Exam
GEN: No distress, awake, Ox3, thin appearing female
HEENT: supple, anicteric, mmm
LUNGS: CTA, no wheezes/rales
CV: Reg, S1/S2, no murmur, rub or gallop
ABD: soft, BS+, NT/ND
EXT: No edema, clubbing or cyanosis
NEURO: Gross non-focal
SKIN: No rash, warm, dry, pink
[2024-10-31] MEDS: LASIX 40 MG IV (12:41)
--- NOTE | 2024-10-31 12:52 | PTCARENOTE ---
Pt BP 88/58 and due for 40mg IV lasix. No complaints dizziness. Iona Bose made aware and ok to administer lasix.
[2024-10-31] MEDS: TOPROL XL 12.5 MG PO (15:38)
[2024-10-31] MEDS: LOVENOX 40 MG SC (17:10)
[2024-10-31] MEDS: OSCAL CAL 500 1000 MG PO (22:35)
[2024-11-01] VITALS (30 sets, daily range): BP systolic 68–99; BP diastolic 42–70; BMI 18.4
--- NOTE | 2024-11-01 00:26 | PTCARENOTE ---
BPs soft- pt asymptomatic- resting in bed. POC discussed- pt verbalized understanding. SR with BBB
[2024-11-01 03:55] LABS: ALT (SGPT) 36 U/L (0-35); AST (SGOT) 23 U/L (14-36); Albumin 3.8 g/dl (3.5-5.0); Alkaline Phosphatase 70 U/L (38-126); Blood Urea Nitrogen 23 mg/dl (7-17); Calcium 9.1 mg/dl (8.4-10.2); Carbon Dioxide 26 mmol/L (22-30); Chloride 102 mmol/L (98-107); Estimated Creatinine Clearance 66 ml/min; Glucose 94 mg/dl (70-99); Magnesium 2.1 mg/dl (1.6-2.3); Potassium 4.3 mmol/L (3.5-5.1); Sodium 134 mmol/L (135-145); Total Bilirubin 1.3 mg/dl (0.2-1.3); Total Protein 6.4 g/dl (6.3-8.2); eGFR > 60.00
[2024-11-01] MEDS: VITAMIN D3 (cholecalciferol) 50 MCG PO (07:25)
[2024-11-01] MEDS: LASIX 40 MG IV (07:25)
[2024-11-01] MEDS: OSCAL CAL 500 1000 MG PO ×3 (07:25→21:06)
--- NOTE | 2024-11-01 08:54 | W.PN.HOSP.TC ---
Today's Communication/Plan
-
see A/P
Assessment / Plan
Assessment / Plan
64-year-old female with known past medical history of triple negative breast cancer more than 10 years ago, cardiomyopathy, IBS, diverticulitis, cholelithiasis, known left bundle branch block since 2023 (followed by cardiology outpatient Dr. Green
Van Why), presented with ongoing progressive chest pain. She was seen in the ER on 10/28/24 for the same concern. Blood work, CT angio chest/abdomen pelvis and EKG at that time was unremarkable and she was discharged. She was informed regarding
incidentally noted gallstone which she had the knowledge already. She was discharged to follow-up with outpatient cardiology for planned echocardiogram.
She completed an echo recommended by outpatient concrete tester which showed newly reduced ejection fraction of 15 to 20% with progression of valvular disease and she was referred to the emergency department.
On DOA, she reported that she continues to have the same chest pain which feels like a tight band around her chest which sometimes radiates towards her mid back.
Of note she had a recent flare up of diverticulitis which required antibiotics.
In the ER EKG showed sinus rhythm with left bundle branch block. Lab work was unremarkable except mildly elevated AST and ALT. Troponin was negative. proBNP 4900. Cardiology was consulted and she was admitted for further evaluation for cardiac.
A/P:
# nonischemic cardiomyopathy
# HFrEF
s/p cardiac cath 10/30: Non-obstructive coronary artery disease.
s/p hep gtt
troponin peaked at 0.067
BNP 4900
Card recc aggressive IV diuresis. Optimization of goal-directed medical therapy for nonischemic cardiomyopathy. Plan for repeat echocardiogram at 3 months as an outpatient to assess LVEF recovery.
Started Toprol 12.5 mg , IV lasix 40 mg daily, added holding parameter to both for hypotension
# Mild Transaminitis likely 2/2 hepatic congestion , improving
trend LFT
# H/O Breast ca s/p chemo
# LBBB- chronic
# IBS- cont hyocyamine prn
DVTp: Lovenox SQ
Code Full
Anticipated Discharge: 24 - 48 hours
Subjective/Interval History
-
Date of Service: November 01, 2024
Objective Data
-
Labs:
Laboratory Results
11/01/24
03:13
Sodium 134 L
Potassium 4.3
Chloride 102
Carbon Dioxide 26
BUN 23 H
Creatinine 0.7
Glucose 94
Calcium 9.1
Total Bilirubin 1.3
AST 23
ALT 36 H
Alkaline Phosphatase 70
Vital Signs:
Vital Signs
Temp Pulse Resp BP Pulse Ox
36.9 C 80 20 97/69 97
11/01/24 07:05 11/01/24 07:03 11/01/24 07:05 11/01/24 07:03 11/01/24 07:05
I&O
10/31/24 11/01/24 11/02/24
06:59 06:59 06:59
Intake Total 900 / 900
Output Total 1350 / 1350
Balance -450 / -450
Review of Systems
-
All other systems: Reviewed and negative
Physical Exam
-
General: Well Developed, Well Nourished, No Apparent Distress, Comfortable and Conversant; Negative Respiratory Distress
HEENT: Normocephalic, Atraumatic, Nose Appears Normal and Ears Appear Normal; Negative Oxygen
Respiratory: Clear to Auscultation and Non Labored Respirations; Negative Accessory Resp Muscle Use
Cardiac: Regular Rhythm and S1/S2
GI: Soft, Nontender, Nondistended and Normal Bowel Sounds
Skin: Warm and Dry
Neuro: Awake, Alert, Oriented and AO x 3
Psych: Calm and Intact Judgement/Insight
Data Reviewed
-
Medical Tests (Nuc Med, Echo etc): Report Reviewed by me (cath report) and Discussed with Patient
Labs: Labs Reviewed by me
[2024-11-01] MEDS: TOPROL XL PO (09:06)
--- NOTE | 2024-11-01 09:19 | W.PN.CARDCBS ---
Today's Communication / Plan
-
Continue IV diuresis
Continue beta-radhika therapy
Initiate low-dose ESPERANZA, monitor response given stable blood pressure borderline hypotension
Monitor renal function, intake and output, daily weight
Impression / Plan
-
Primary outpt gambreler: Dr. Norma Dominguez
Impression:
Presents 10/30/2024 with progressively worsening dyspnea on exertion x 2 months and recent chest pain
Nonischemic cardiomyopathy, EF 15-20% on echo 10/30/2024
Nonobstructive coronary artery disease on catheterization 10/30/2024
Abnormal LFTs
Acute heart failure with reduced ejection fraction, proBNP 4900
LBBB diagnosed in 2023
Triple negative breast cancer
Status post bilateral mastectomy 2013
Status post chemo with Adriamycin, cytotaxin and Taxol 2013
IBS
Diverticulitis
Gallstones
Echo 10/30/2024 ([facility]): EF 15-20%, akinetic/dyskinetic septum other zuluaga hypokinetic. NL RV size and function. Stage 2 DD. Mild-moderate MR/TR. Trivial pericardial effusion. Interatrial septum is bowed into right atrial consistent with increased left
atrial pressure. No trans atrial shunt appreciated on doppler.
Echo 10/04/2023 ([facility]): EF 45-50% with top-normal LV size and a septal contraction abnormality. Trivial valvular regurgitation noted
Cardiac catheterization 10/30/2024: Nonobstructive coronary artery disease with left dominant system. Significantly elevated filling pressures,. RA (m) : 11; RV (s/d,m) : 53/12, 20; AO saturation: 97.7% on room air
RA saturation: 79.7 on room air; AO (s/d) : 129/79; LV (s/d) : 126/21; LVEDP : 33; unable to calculate cardiac output/index as [place] catheter was unable to be advanced from the RV into the PA
Plan:
-Presented 10/30/2024 with progressively worsening dyspnea on exertion x 2 months and recent increase in reflux/GERD symptoms as well as chest pain.
Nonischemic cardiomyopathy/Acute heart failure with reduced ejection fraction, proBNP 4900.
-Found to have newly reduced ejection fraction previously 45 to 50% now 15 to 20% on outpatient echo ([facility])
-Left heart catheterization 10/30/2024 shows nonobstructive coronary artery disease
-Elevated filling pressures, continue IV diuresis
-GDMT as blood pressure allows as she has longstanding history of hypotension. Patient tolerating low-dose beta-radhika Toprol 12.5 mg twice a day. Will start low-dose ESPERANZA/ARB today and monitor response; consider addition of Aldactone as blood
pressure allows with diuresis hopefully within next 24 hours
-Case management to perform cost analysis on SGLT2 inhibitor
-Cardiac rehab consultation
-Heart failure/nutritional list consultation
-Discussed repeat echocardiogram in 3 months if ejection fraction remains reduced on optimized GDMT would consider BiV ICD (in the setting of NYHA II�III heart failure, left bundle branch block, sinus rhythm)
PAT/SVT
-Initiate low-dose beta-radhika
Outpatient cardiology records have been requested but not yet received after second attempt
Plan discussed with patient, nursing, patient's daughter who is at bedside. I spent 25 minutes with patient and daughter
HPI 10/30/2024:
Patient is a 64-year-old female with past medical history significant for cardiomyopathy, left bundle branch block discovered in 2023, triple negative breast cancer status post bilateral mastectomy and TAHSBO who follows routinely with Dr. Dominguez
of cardiology. Patient reports she recently had diverticulitis flare and required antibiotics. Since that time she has noticed ongoing weight loss and increased indigestion/reflux symptoms. She was seen in emergency department 10/28/2024 with
chest pain radiating into the back. Troponin was negative. CT angiogram no acute pathology in chest, abdomen or pelvis. There was no evidence of aortic dissection. She was noted to have a 4 mm gallstone and an oval hypodense hepatic lesion
likely cyst or hemangioma. Patient was due to see her outpatient gambreler Dr. Norma Dominguez who had her get an echocardiogram today which showed newly reduced ejection fraction of 15 to 20% with progression of valvular disease and she was
referred to emergency department 10/30/2024. EKG admission shows sinus rhythm with left bundle branch block. Laboratory studies were rather unremarkable except mildly elevated AST and ALT 42/60. Troponin was negative. proBNP 4900. She continues
to have some mild GERD/reflux symptoms and dyspnea on exertion with activities like walking up steps or bending over to hop picker stuff. Currently she denies chest pain or shortness of breath at rest.
Progress Note - Food Or Baggage Handling [place]
Subjective
Date of Service: November 01, 2024
Patient seen and examined's morning. No acute events overnight. Patient resting comfortably in bed. Patient reports he has been walking the hallways without chest pain, lightheadedness, dizziness, weakness. She notes continued shortness of
breath but improved. Telemetry demonstrates sinus rhythm.
Objective
Labs:
10/31/24 02:13
11/01/24 03:13
Labs
Hgb 14.7 g/dL (12.0-16.0) 10/31/24 02:13
Hct 44.5 % (37.0-47.0) 10/31/24 02:13
Plt Count 306 10^3/uL (130-400) 10/31/24 02:13
PT 13.7 Sec (11.4-14.6) 10/30/24 12:17
INR 1.02 10/30/24 12:17
APTT 26.9 Sec (23.4-35.0) 10/30/24 19:56
Sodium 134 mmol/L (135-145) L 11/01/24 03:13
Potassium 4.3 mmol/L (3.5-5.1) 11/01/24 03:13
BUN 23 mg/dl (7-17) H 11/01/24 03:13
Creatinine 0.7 mg/dL (0.6-1.0) 11/01/24 03:13
Glucose 94 mg/dl (70-99) 11/01/24 03:13
Troponins
10/30/24 10/30/24 10/31/24
12:17 19:56 02:13
Troponin I < 0.012 0.025 D 0.067 H* D
10/31/24 10/31/24 10/31/24
09:10 14:00 20:00
Troponin I 0.067 H* Cancelled Cancelled
Vital Signs and I&O:
Vital Signs
Temp Pulse Resp BP Pulse Ox
98.4 F 80 20 93/66 97
11/01/24 07:05 11/01/24 07:03 11/01/24 07:05 11/01/24 09:06 11/01/24 07:05
Vital Signs
Temp Pulse Resp BP Pulse Ox
98.4 F 80 20 93/66 97
11/01/24 07:05 11/01/24 07:03 11/01/24 07:05 11/01/24 09:06 11/01/24 07:05
Intake & Output
10/30/24 10/31/24 11/01/24 11/02/24
06:59 06:59 06:59 06:59
Intake Total 900 / 900
Output Total 1350 / 1350
Balance -450 / -450
Physical Exam
Physical Exam
GEN: No distress, awake, Ox3, thin appearing female
HEENT: supple, anicteric, mmm
LUNGS: Faint bibasilar crackles, no wheezes, rhonchi, rales
CV: Reg, S1/S2, no murmur, rub or gallop
ABD: soft, BS+, NT/ND
EXT: No edema, clubbing or cyanosis
NEURO: Gross non-focal
SKIN: No rash, warm, dry, pink
[2024-11-01] MEDS: ZESTRIL 2.5 MG PO (10:26)
--- NOTE | 2024-11-01 10:45 | PTCARENOTE ---
Rec'd pt at handoff. Tele- SR w/ BBBC. Pt has no complaints at this time. Metoprolol held this AM d/t hold parameters. See MAR. Plan of care reviewed w/ pt. Verbalizes understanding. Call hearn is w/in reach.
[2024-11-01 13:12] LABS: Glucose - Point of Care 200 mg/dl (70-99)
--- NOTE | 2024-11-01 14:14 | PTCARENOTE ---
Pt rang call hearn complaining of 8/10 crushing CP radiating to back and dizziness while sitting in bed. BP 68/45. Bed positioned in trendelenburg. Ekg obtained- SR. Repeat BP 91/49. Dr. Alejandra MORENO notified via TT. 500 ml IVF administered and
lisinopril put on hold per Dr. Roberts. Pt reports CP resolved on its own. B/l LE ESPERANZA compressions ordered and applied. Pt aware to stay in bed with BP fluctuations. Call hearn is w/in reach.
--- NOTE | 2024-11-01 14:41 | PTCARENOTE ---
Pt rang call hearn complaining of 8/10 crushing CP radiating to back and dizziness while sitting in bed. BP 68/45. Bed positioned in trendelenburg. Ekg obtained- SR. Repeat BP 91/49. Dr. Poncho MORENO notified via TT. 500 ml bolus administered per
Poncho. Pt reports CP resolved on its own. B/l LE tubigrip compressions applied. Pt aware to stay in bed with BP fluctuations. Daughter and patient educated on plan of care. Verbalizes understanding. Call hearn is w/in reach.
[2024-11-01] MEDS: NSS 500 IV (15:05)
[2024-11-01] MEDS: LOVENOX 40 MG SC (17:09)
--- NOTE | 2024-11-01 20:00 | PTCARENOTE ---
Resumed care of pt laying in bed sleeping. Pt easily arousable to voice, AAOx3. HR in the 80's in NSR on the monitor with BBB. POX 96% on RA. Lungs clear. + bowel. Pt assisted to bathroom, ambulatory independently without issues. Pt denies any
dizziness, lightheadedness. Pt settled in bed per comfort. Palpable peripheral pulses present. Right groin puncture site intact open to air. Right radial site intact, ecchymotic, open to air. Tubi baked goods stock clerk in place to B/L LE. Left forearm int capped.
BP in the low 80's when side laying, high 80's when sitting up. Pt remains asymptomatic. Call hearn in reach. Will continue to monitor.
[2024-11-02] VITALS (29 sets, daily range): BP systolic 75–119; BP diastolic 49–71; O2SAT 99; BMI 18.5
[2024-11-02 04:52] LABS: ALT (SGPT) 35 U/L (0-35); AST (SGOT) 25 U/L (14-36); Albumin 4.2 g/dl (3.5-5.0); Alkaline Phosphatase 77 U/L (38-126); Blood Urea Nitrogen 29 mg/dl (7-17); Calcium 10.5 mg/dl (8.4-10.2); Carbon Dioxide 29 mmol/L (22-30); Chloride 101 mmol/L (98-107); Estimated Creatinine Clearance 58 ml/min; Glucose 108 mg/dl (70-99); Magnesium 1.9 mg/dl (1.6-2.3); Potassium 5.2 mmol/L (3.5-5.1); Sodium 136 mmol/L (135-145); Total Bilirubin 1.4 mg/dl (0.2-1.3); Total Protein 7.5 g/dl (6.3-8.2); eGFR > 60.00
--- NOTE | 2024-11-02 06:47 | W.PN.HOSP.TC ---
Addendum entered and electronically signed by Angus Tay MD 11/02/24 16:16:
I saw and evaluated the patient. I reviewed the resident�s note and agree with findings and plan as documented in the resident�s note except for changes in my documentation
Addendum entered and electronically signed by Angus Tay MD 11/02/24 15:59:
Seen earlier. Late documentation.
63-year-old female presented with chest pain. She was seen in the ER on 10/28/2024 for the same reason. At that time CT angiogram of the chest abdomen and pelvis and EKG was negative and was discharged. Outpatient follow-up with cardiology and
echo were planned. Echo showed newly reduced EF of 15 to 20% with progression of valvular disease and she was referred to the ER.
Echo 10/30/2024-EF 15 to 20%. Akinetic/dyskinetic septum, other zuluaga hypokinetic. Normal RV size and function. Stage II diastolic dysfunction. Mild to moderate MR/TR. Trivial pericardial effusion. Interatrial septum is bowed to right atrial
secondary to increased left atrial pressure
Cardiac cath 10/30/2024-nonobstructive coronary artery disease with left dominant system. Elevated filling pressure LVEDP 33
Patient was seen ambulating in the hallway earlier
CVS: S1-S2 normal
Chest: CTA B/L
Abdomen: Soft, NT / Bowel sounds present
Extremities: No edema
# New diagnosis of nonischemic cardiomyopathy
Outpatient wastewater analyst Dr. Laura Dudley
Acute HFrEF
10/30/2024-nonobstructive coronary artery disease elevated troponin-nonischemic myocardial injury secondary to CHF
Possible chemo related
Status post heparin drip
proBNP on admission 4900
Started on Toprol-XL 12.5 mg daily, may benefit from ARNI/Aldactone if blood pressure can tolerate-lisinopril started but holding secondary to hypotension
Farxiga added
Continue diuresis with IV Lasix-changed to p.o.
Blood pressure has been in the way of using goal-directed therapy. Midodrine added to help this situation.
# History of paroxysmal atrial tachycardia/SVT-on beta-blockers
# Mild transaminitis secondary to hepatic congestion-normal now
# History of breast cancer-triple negative status post bilateral mastectomy 2013 and chemotherapy with Adriamycin, cytotaxin and Taxol 2013
# Chronic LBBB
# History of IBS-on hyoscyamine as needed
# Diverticulosis
# Cholelithiasis
# DVT prophylaxis-subcutaneous Lovenox
# Full code
Discussed with nursing
Discussed with cardiology
Discussed with patient's daughter at bedside
Original Note:
Documented by User: Kenrick Marley MD, Resident 11/02/24 15:06
Today's Communication/Plan
-
Oral Lasix
Check A1c
Monitor BP closely
Limited GDMT
Assessment / Plan
Assessment / Plan
64-year-old female with known past medical history of triple negative breast cancer more than 10 years ago, cardiomyopathy, IBS, diverticulitis, cholelithiasis, known left bundle branch block since 2023 (followed by cardiology outpatient Dr. Green
Van Why), presented with ongoing progressive chest pain that radiates to the back. She was seen in the ER on 10/28/24 for the same concern. Blood work, CT angio chest/abdomen pelvis and EKG at that time was unremarkable and she was discharged.
Subsequent outpatient echocardiography showed EF 15 to 20% (previously 45 to 50% 10/04 2023) with progression of valvular disease. EKG in ER with RBBB, troponin negative, proBNP 4900.
Assessment/plan:
# Nonischemic myocardial injury.
-Suspect chemo induced.
-Troponin peaked at 0.067.
-Most likely due to right heart strain.
-Cardiac cath 10/30/2024 with nonobstructive coronary artery disease.
-Continue oral Lasix 20 mg.
-Monitor blood pressure closely.
# HFrEF
-Progressed; echo 10/30 with EF 15-20% (was 45-50% on 10/04).
-Outpatient wastewater analyst Dr. Laura Dudley.
-Continue oral Lasix.
-Add midodrine for hypotension.
-GDMT with Toprol 12.5 mg BID, lisinopril.
-Consider Aldactone when blood pressure allows.
-Cardiac rehab consultation.
-Echocardiogram in 3 months, consider BiV ICD if EF remains low on optimized GDMT per cardiology.
-Cardiology appreciated.
#Hyperkalemia
-Potassium 5.2.
-Suspect from volume contraction
-Follow BMP.
#Elevated blood glucose
-Baseline glucose unknown.
-Check A1c.
#Mild Transaminitis from hepatic congestion
-Resolved
# H/O Breast ca-s/p chemo
# LBBB- chronic
# IBS- cont hyocyamine prn
DVTp: Lovenox SQ
Code Full
Data:
Echo 10/30/2024 ([facility]): EF 15-20%, akinetic/dyskinetic septum other zuluaga hypokinetic. NL RV size and function. Stage 2 DD. Mild-moderate MR/TR. Trivial pericardial effusion. Interatrial septum is bowed into right atrial consistent with increased left
atrial pressure. No trans atrial shunt appreciated on doppler.
Echo 10/04/2023 ([facility]): EF 45-50% with top-normal LV size and a septal contraction abnormality. Trivial valvular regurgitation noted
Cardiac catheterization 10/30/2024: Nonobstructive coronary artery disease with left dominant system. Significantly elevated filling pressures,. RA (m) : 11; RV (s/d,m) : 53/12, 20; AO saturation: 97.7% on room air
RA saturation: 79.7 on room air; AO (s/d) : 129/79; LV (s/d) : 126/21; LVEDP : 33; unable to calculate cardiac output/index as [place] catheter was unable to be advanced from the RV into the PA
Anticipated Discharge: 24 - 48 hours
Subjective/Interval History
-
Date of Service: November 02, 2024
Patient seen and examined with daughter at bedside. She reports feeling better today. Denies any acute complaints. No chest pain, shortness of breath, palpitations, fever, nausea or vomiting. Denies lightheadedness, headaches, abdominal pain.
Objective Data
-
Labs:
Laboratory Results
11/02/24
03:51
Sodium 136
Potassium 5.2 H
Chloride 101
Carbon Dioxide 29
BUN 29 H
Creatinine 0.8
Glucose 108 H
Calcium 10.5 H D
Total Bilirubin 1.4 H
AST 25
ALT 35
Alkaline Phosphatase 77
Vital Signs:
Vital Signs
Temp Pulse Resp BP Pulse Ox
97.8 F 77 20 103/71 100
11/02/24 03:46 11/02/24 03:46 11/02/24 03:46 11/02/24 03:26 11/02/24 03:46
I&O
10/31/24 11/01/24 11/02/24
06:59 06:59 06:59
Intake Total 900 / 900 1380 / 1380
Output Total 1350 / 1350 1200 / 1200
Balance -450 / -450 180 / 180
Review of Systems
-
All other systems: Reviewed and negative
Physical Exam
-
General: Well Developed, Well Nourished, No Apparent Distress, Comfortable and Conversant; Negative Respiratory Distress
HEENT: Normocephalic, Atraumatic, Nose Appears Normal and Ears Appear Normal; Negative Oxygen
Respiratory: Clear to Auscultation and Non Labored Respirations; Negative Accessory Resp Muscle Use
Cardiac: Regular Rhythm and S1/S2
GI: Soft, Nontender, Nondistended and Normal Bowel Sounds
Skin: Warm and Dry
Neuro: Awake, Alert, Oriented and AO x 3
Psych: Calm and Intact Judgement/Insight
Data Reviewed
-
Medical Tests (Nuc Med, Echo etc): Report Reviewed by me (cath report), Discussed with Physician and Discussed with Patient
Labs: Labs Reviewed by me

Documented by User: Lillian Jacob MD, Resident 11/02/24 11:31
Assessment / Plan
Assessment / Plan
64-year-old female with known past medical history of triple negative breast cancer more than 10 years ago, cardiomyopathy, IBS, diverticulitis, cholelithiasis, known left bundle branch block since 2023 (followed by cardiology outpatient Dr. Green
Van Why), presented with ongoing progressive chest pain that radiates to the back. She was seen in the ER on 10/28/24 for the same concern. Blood work, CT angio chest/abdomen pelvis and EKG at that time was unremarkable and she was discharged.
Subsequent outpatient echocardiography showed EF 15 to 20% (previously 45 to 50% 10/04 2023) with progression of valvular disease. EKG in ER with RBBB, troponin negative, proBNP 4900.
Assessment/plan:
# Nonischemic myocardial injury.
chemo
-Troponin peaked at 0.067.
-Most likely due to right heart strain.
-Cardiac cath 10/30/2024 with nonobstructive coronary artery disease.
-Continue IV Lasix.
-Cardiology following.
# HFrEF
-Progressed.
-BNP 4900
-Continue diuresis with IV Lasix.
-midodrine
-GDMT with Toprol 12.5 mg BID, lisinopril.
-Consider Aldactone if blood pressure allows per cardiology.
-Cardiac rehab consultation.
-Echocardiogram in 3 months, consider BiV ICD if EF remains low on optimized GDMT per cardiology.
-Cardiology appreciated.
#Hyperkalemia
-Potassium 5.2.
-Suspect from volume contraction
-Follow BMP.
#Mild Transaminitis from hepatic congestion
-Improving.
-Follow LFTs.
# H/O Breast ca-s/p chemo
# LBBB- chronic
# IBS- cont hyocyamine prn
DVTp: Lovenox SQ
Code Full
Data:
Echo 10/30/2024 ([facility]): EF 15-20%, akinetic/dyskinetic septum other zuluaga hypokinetic. NL RV size and function. Stage 2 DD. Mild-moderate MR/TR. Trivial pericardial effusion. Interatrial septum is bowed into right atrial consistent with increased left
atrial pressure. No trans atrial shunt appreciated on doppler.
Echo 10/04/2023 ([facility]): EF 45-50% with top-normal LV size and a septal contraction abnormality. Trivial valvular regurgitation noted
Cardiac catheterization 10/30/2024: Nonobstructive coronary artery disease with left dominant system. Significantly elevated filling pressures,. RA (m) : 11; RV (s/d,m) : 53/12, 20; AO saturation: 97.7% on room air
RA saturation: 79.7 on room air; AO (s/d) : 129/79; LV (s/d) : 126/21; LVEDP : 33; unable to calculate cardiac output/index as [place] catheter was unable to be advanced from the RV into the PA
[2024-11-02] MEDS: OSCAL CAL 500 1000 MG PO (08:51)
[2024-11-02] MEDS: VITAMIN D3 (cholecalciferol) 50 MCG PO (08:54)
[2024-11-02] MEDS: TOPROL XL PO (08:56)
--- NOTE | 2024-11-02 09:14 | PTCARENOTE ---
Addendum entered by Neel Castañeda RN 11/02/24 11:02:
Assumed care at 0700, patient walking in the halls already. NSR BBB HR 70-90's. Tubigrip stockings in place. BP 83/55 denies lightheadedness.
Original Note:
Assumed care at 0700, patient walking in a halls already. NSR BBB HR 70-90's. Tubigrip stockings in place. BP 83/55 denies lightheadedness.
[2024-11-02] MEDS: LASIX IV (10:46)
[2024-11-02] MEDS: TOPROL XL 12.5 MG PO (12:29)
[2024-11-02] MEDS: ProAmatine 5 MG PO ×2 (12:29→17:37)
--- NOTE | 2024-11-02 12:33 | PTCARENOTE ---
BP right leg 119/61 right leg, left arm 94/59
--- NOTE | 2024-11-02 12:52 | W.PN.CARDCBS ---
Addendum entered and electronically signed by Alton Hopkins MD 11/02/24 13:41:
64-year-old woman with left bundle branch block history of triple negative breast cancer status post bilateral mastectomies, previously treated with Adriamycin., Admitted with newly diagnosed EF of 15 to 20% and mild to moderate MR TR., EF had
been 45 to 50% in early 2023. proBNP was 4900
She feels very well. She received lisinopril 2.5 yesterday became very hypotensive. She wants to go home.
Current meds: Subcu Lovenox, furosemide 40 mg a day, metoprolol 12.5 twice daily, lisinopril 2.5 mg daily on hold related to hypotension, midodrine 5 mg 3 times daily added
87/63, pulse 75, respiratory 20, afebrile, weight is 52.1 kg, up 0.3 kg, head neck exam unremarkable lungs are clear dyskinetic point of maximal impulse with MR murmur JVD okay no edema abdomen benign
sodium 136, potassium 5.2, troponin 0.067, LDL is 95, sodium was as low as 133
Impression:
Nonischemic cardiomyopathy
Mitral regurgitation
History of breast cancer/Adriamycin but dosing was carefully modulated
Left bundle branch block
Plan:
Despite her reduced EF she looks quite well and is very anxious to go home. I spoke with her communications manager Dr. Dominguez and we agreed upon her medical regimen.
From my standpoint okay to discharge.
Will add Farxiga prior to discharge. I also took the liberty of checking cortisol level given hypotension, mild hyponatremia on admission and a potassium that lucie today
Recommended cardiac meds at discharge:
Metoprolol ER 12.5 mg daily
Midodrine 5 mg 3 times daily
Furosemide 20 mg a day
Farxiga [address] Dominguez to consider spironolactone, etc. as outpatient
Mrs. Fischer has follow-up with Dr. Dominguez this week
Please check basic metabolic panel in 1 week
Original Note:
Today's Communication / Plan
-
-administer lasix 20 mg po today and observe one more day to make sure BP stable on outpt regimen of Lasix 20 mg daily, Toprol 12.5 mg daily, Farxiga 10 mg daily (added today)
outpt f/u with primary communications manager later this week
-BMP 1 week
Impression / Plan
-
Primary outpt communications manager: Dr. Norma Dominguez
Impression:
Presents 10/30/2024 with progressively worsening dyspnea on exertion x 2 months and recent chest pain
Nonischemic cardiomyopathy, EF 15-20% on echo 10/30/2024
Nonobstructive coronary artery disease on catheterization 10/30/2024
Abnormal LFTs
Acute heart failure with reduced ejection fraction, proBNP 4900
LBBB diagnosed in 2023
Triple negative breast cancer
Status post bilateral mastectomy 2013
Status post chemo with Adriamycin, cytotaxin and Taxol 2013
IBS
Diverticulitis
Gallstones
Echo 10/30/2024 ([facility]): EF 15-20%, akinetic/dyskinetic septum other zuluaga hypokinetic. NL RV size and function. Stage 2 DD. Mild-moderate MR/TR. Trivial pericardial effusion. Interatrial septum is bowed into right atrial consistent with increased left
atrial pressure. No trans atrial shunt appreciated on doppler.
Echo 10/04/2023 ([facility]): EF 45-50% with top-normal LV size and a septal contraction abnormality. Trivial valvular regurgitation noted
Cardiac catheterization 10/30/2024: Nonobstructive coronary artery disease with left dominant system. Significantly elevated filling pressures,. RA (m) : 11; RV (s/d,m) : 53/12, 20; AO saturation: 97.7% on room air
RA saturation: 79.7 on room air; AO (s/d) : 129/79; LV (s/d) : 126/21; LVEDP : 33; unable to calculate cardiac output/index as [place]-Tej catheter was unable to be advanced from the RV into the PA
Plan:
-Presented 10/30/2024 with progressively worsening dyspnea on exertion x 2 months and recent increase in reflux/GERD symptoms as well as chest pain.
Nonischemic cardiomyopathy/Acute heart failure with reduced ejection fraction, proBNP 4900.
-Found to have newly reduced ejection fraction previously 45 to 50% now 15 to 20% on outpatient echo ([facility])
-Left heart catheterization 10/30/2024 shows nonobstructive coronary artery disease
-Elevated filling pressures, rec'd IV diuresis with 11 lb wt loss since 10/30/2024.
-GDMT as blood pressure allows as she has longstanding history of hypotension. Patient tolerating low-dose beta-radhika Toprol 12.5 mg twice a day. Not able to tolerated low-dose ESPERANZA/ARB due to hypotension
-Farxiga 10 mg added today
-will transition to oral Lasix 20 mg daily- give first dose today to make sure she tolerates new regimen with Lasix, Toprol, Farxiga, Midodrine
-consider addition of Aldactone in outpt setting, as BP allows
-Case management to perform cost analysis on SGLT2 inhibitor
-Midodrine added to support BP
-Cardiac rehab consultation
-Heart failure/nutritional list consultation
-Discussed repeat echocardiogram in 3 months if ejection fraction remains reduced on optimized GDMT would consider BiV ICD (in the setting of NYHA II�III heart failure, left bundle branch block, sinus rhythm)
-has f/u with Dr Walsh later this week
PAT/SVT
-Initiated low-dose beta-radhika
Outpatient cardiology records have been requested but not yet received after second attempt
Plan discussed with patient, nursing, patient's daughter who is at bedside. I spent 15 minutes with patient and daughter
HPI 10/30/2024:
Patient is a 64-year-old female with past medical history significant for cardiomyopathy, left bundle branch block discovered in 2023, triple negative breast cancer status post bilateral mastectomy and TAHSBO who follows routinely with Dr. Dominguez
of cardiology. Patient reports she recently had diverticulitis flare and required antibiotics. Since that time she has noticed ongoing weight loss and increased indigestion/reflux symptoms. She was seen in emergency department 10/28/2024 with
chest pain radiating into the back. Troponin was negative. CT angiogram no acute pathology in chest, abdomen or pelvis. There was no evidence of aortic dissection. She was noted to have a 4 mm gallstone and an oval hypodense hepatic lesion
likely cyst or hemangioma. Patient was due to see her outpatient communications manager Dr. Norma Dominguez who had her get an echocardiogram today which showed newly reduced ejection fraction of 15 to 20% with progression of valvular disease and she was
referred to emergency department 10/30/2024. EKG admission shows sinus rhythm with left bundle branch block. Laboratory studies were rather unremarkable except mildly elevated AST and ALT 42/60. Troponin was negative. proBNP 4900. She continues
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 Currently she denies chest pain or shortness of breath at rest.
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
Subjective
Date of Service: November 02, 2024
walked around halls - felt good, no lightheadedness, shortness of breath
anxious to go home but worried about low BPs
Objective
Labs:
10/31/24 02:13
11/02/24 03:51
Labs
Hgb 14.7 g/dL (12.0-16.0) 10/31/24 02:13
Hct 44.5 % (37.0-47.0) 10/31/24 02:13
Plt Count 306 10^3/uL (130-400) 10/31/24 02:13
PT 13.7 Sec (11.4-14.6) 10/30/24 12:17
INR 1.02 10/30/24 12:17
APTT 26.9 Sec (23.4-35.0) 10/30/24 19:56
Sodium 136 mmol/L (135-145) 11/02/24 03:51
Potassium 5.2 mmol/L (3.5-5.1) H 11/02/24 03:51
BUN 29 mg/dl (7-17) H 11/02/24 03:51
Creatinine 0.8 mg/dL (0.6-1.0) 11/02/24 03:51
Glucose 108 mg/dl (70-99) H 11/02/24 03:51
Troponins
10/30/24 10/31/24 10/31/24
19:56 02:13 09:10
Troponin I 0.025 D 0.067 H* D 0.067 H*
10/31/24 10/31/24
14:00 20:00
Troponin I Cancelled Cancelled
Vital Signs and I&O:
Vital Signs
Temp Pulse Resp BP Pulse Ox
98.8 F 81 20 119/61 97
11/02/24 11:47 11/02/24 12:29 11/02/24 11:47 11/02/24 12:29 11/02/24 11:47
Vital Signs
Temp Pulse Resp BP Pulse Ox
98.8 F 81 20 119/61 97
11/02/24 11:47 11/02/24 12:29 11/02/24 11:47 11/02/24 12:29 11/02/24 11:47
Intake & Output
10/31/24 11/01/24 11/02/24 11/03/24
06:59 06:59 06:59 06:59
Intake Total 900 / 900 1380 / 1380
Output Total 1350 / 1350 1200 / 1200
Balance -450 / -450 180 / 180
Physical Exam
Physical Exam
GEN: No distress, awake, Ox3
HEENT: supple, anicteric, mmm
LUNGS: CTA, no wheezes/rales
CV: Reg, S1/S2, no murmur
ABD: soft, BS+, NT/ND
EXT: No edema
NEURO: Gross non-focal
SKIN: No rash
[2024-11-02] MEDS: FARXIGA 10 MG PO (13:13)
--- NOTE | 2024-11-02 13:47 | CM ---
spoke to pt in room, she is prev indep, lives with her husb in a 2 story home with 1 step to enter. she denies any dc planning needs or dme's. plan is for dc to home when medically stable.
--- NOTE | 2024-11-02 14:37 | CM ---
priced joycelyn with pts [facility]- her copay is $35/month- zero copay card placed in pts red dc folder.
--- NOTE | 2024-11-02 14:46 | PN.CDI ---
CDI
- -
CDI:
Physician Documentation Request
Admit Date: 10/30/24 15:40
Dear Cardiology,
Clinical Indicators:
Patient admitted with nonischemic cardiomyopathy.
11/02 PN 'Acute heart failure with reduced ejection fraction...Left heart catheterization 10/30/2024 shows nonobstructive coronary artery disease'
Troponin trend:
10/30/24 10/30/24 10/31/24
12:17 19:56 02:13
Troponin I < 0.012 0.025 D 0.067 H* D
10/31/24
09:10
Troponin I 0.067 H*
Based on the above, could you clarify in the progress notes, the appropriate diagnosis, if significant, that supports the above abnormalities and additional evaluation, monitoring and/or treatment rendered:
Non ischemic myocardial injury
Elevated troponin only
Other
Use of terms such as suspected, likely, concern for, or probable (associated with a specific diagnosis that is being evaluated, monitored, or treated as if it exists) are acceptable and can be coded in the inpatient setting, when documented at the
time of discharge.
Thank you,
Irais Mc RN BSN
CDI Specialist
available via tiger text
Please use your independent medical judgment in providing your response.
[2024-11-02 15:14] LABS: Cortisol, Random 22.8 ug/dl
[2024-11-02] MEDS: OSCAL CAL 500 PO ×3 (17:36→22:24)
[2024-11-02] MEDS: LASIX 20 MG PO (17:37)
[2024-11-02] MEDS: LOVENOX 40 MG SC (17:37)
--- NOTE | 2024-11-02 18:19 | PTCARENOTE ---
Patient up walking in halls. Denies lightheadedness. Back in bed, lights dimmed, call hearn in reach
[2024-11-02 19:11] LABS: Hepatitis C Antibody Negative (Negative)
--- NOTE | 2024-11-02 20:21 | PTCARENOTE ---
Received patient at change of shift. SR paced on the monitor, HR in the 70s. R wrist and R groin sites WILMA and intact. No complaints from pt at this time, call hearn within reach.
[2024-11-03 03:07] VITALS: BP 100/58
[2024-11-03 03:20] VITALS: BMI 18.3
[2024-11-03 03:50] LABS: % Basophils 2.3 % (0-2); % Immature Granulocytes 0.2 % (0-0.5); % Lymphocytes 39.7 % (20.5-51.1); % Monocytes 15.4 % (1.7-9.3); % Neutrophils 39.4 % (42.2-75.2); Absolute Basophils 0.1 10^3/uL (0-0.2); Absolute Eosinophils 0.2 10^3/uL (0-0.7); Absolute Lymphocytes 2.1 10^3/uL (1.2-3.4); Absolute Monocytes 0.8 10^3/uL (0.1-0.6); Absolute Neutrophils 2.1 10^3/uL (1.4-6.5); Hemoglobin 14.5 g/dL (12.0-16.0); Mean Corp Hgb Conc. 33.7 g/dL (33.0-37.0); Mean Corpuscular Hgb 30.1 pg (27.0-31.0); Mean Corpuscular Volume 89.4 fL (81.0-99.0); Mean Platelet Volume 10.5 fL (7.4-10.4); Nucleated Red Blood Cells % 0 %; Platelet Count 289 10^3/uL (130-400); Red Blood Cell Count 4.81 10^6/uL (4.20-5.40); White Blood Cell Count 5.3 10^3/uL (4.8-10.8)
[2024-11-03 04:12] LABS: Blood Urea Nitrogen 29 mg/dl (7-17); Calcium 9.2 mg/dl (8.4-10.2); Carbon Dioxide 25 mmol/L (22-30); Chloride 101 mmol/L (98-107); Estimated Creatinine Clearance 65 ml/min; Glucose 92 mg/dl (70-99); Potassium 4.5 mmol/L (3.5-5.1); Sodium 135 mmol/L (135-145); eGFR > 60.00
--- NOTE | 2024-11-03 06:54 | W.PN.HOSP.TC ---
Today's Communication/Plan
-
Limited GDMT
Discharge planning.
Assessment / Plan
Assessment / Plan
64-year-old female with known past medical history of triple negative breast cancer previously treated with Adriamycin, known left bundle branch block since 2023 (followed by cardiology outpatient Dr. Norma Dominguez), who presented with newly
diagnosed EF of 15 to 20% (previously 45 to 50% 10/04 2023) and proBNP 4900 with progression of valvular disease. EKG in ER with RBBB, troponin negative, proBNP 4900.
Assessment/plan:
# Newly diagnosed nonischemic myocardial injury.
-Suspect chemo induced.
-Troponin peaked at 0.067.
-BP stable on current medications; furosemide 20 mg daily, Farxiga 10 mg daily, metoprolol 12.5 mg daily midodrine 5 mg 3x daily.
-Patient wants to go home.
-Follows with Dr. Laura Dominguez outpatient, cardiology spoke to patient's cullet washer and both agreed on above regimen for discharge.
# HFrEF
-Progressed; echo 10/30 with EF 15-20% (was 45-50% on 10/04).
-proBNP 4900 on admission.
-GDMT with Toprol 12.5 mg BID, lisinopril. May benefit from ARNI/Aldactone if blood pressure tolerates.
-Continue Lasix and Farxiga, lisinopril held for hypotension.
-Echocardiogram in 3 months, consider BiV ICD if EF remains low on optimized GDMT per cardiology.
-Cardiology appreciated.
#Hyperkalemia
-Resolved
#Elevated blood glucose
-Baseline glucose unknown.
-A1c pending
#Mild Transaminitis from hepatic congestion
-Resolved
#Low BMI
#History of breast cancer s/p chemo. Her low BMI could also be from poor nutrient absorption due to chronic IBS.
-BMI 18.3 kg/m�
-Baseline weight is unknown.
-Advised to improve oral intake.
#H/O Breast ca-s/p chemo
#LBBB- chronic
#IBS- cont hyocyamine prn
DVTp: Lovenox SQ
Code Full
Data:
Echo 10/30/2024 ([facility]): EF 15-20%, akinetic/dyskinetic septum other zuluaga hypokinetic. NL RV size and function. Stage 2 DD. Mild-moderate MR/TR. Trivial pericardial effusion. Interatrial septum is bowed into right atrial consistent with increased left
atrial pressure. No trans atrial shunt appreciated on doppler.
Echo 10/04/2023 ([facility]): EF 45-50% with top-normal LV size and a septal contraction abnormality. Trivial valvular regurgitation noted
Cardiac catheterization 10/30/2024: Nonobstructive coronary artery disease with left dominant system. Significantly elevated filling pressures,. RA (m) : 11; RV (s/d,m) : 53/12, 20; AO saturation: 97.7% on room air
RA saturation: 79.7 on room air; AO (s/d) : 129/79; LV (s/d) : 126/21; LVEDP : 33; unable to calculate cardiac output/index as [place]-Tej catheter was unable to be advanced from the RV into the PA
Anticipated Discharge: Today
Subjective/Interval History
-
Date of Service: November 03, 2024
I saw and evaluated patient today with daughter by bedside. Patient eager to go home. She states that she is feeling better today, reports no acute abnormalities. Denies abdominal pain fever or chills. Had a lot of questions about her medications
and was particular about her blood pressure and kidney function. Took time to explain each medication and how they work. Discussed the need to lay flat if dizzy with activities, patient understands. Reports no dizziness, palpitations, chest pain
or shortness of breath.
Objective Data
-
Labs:
Laboratory Results
11/03/24
03:14
WBC 5.3
Hgb 14.5
Hct 43.0
Plt Count 289
Sodium 135
Potassium 4.5
Chloride 101
Carbon Dioxide 25
BUN 29 H
Creatinine 0.7
Glucose 92
Calcium 9.2
Vital Signs:
Vital Signs
Temp Pulse Resp BP Pulse Ox
98.1 F 70 18 100/58 99
11/03/24 03:22 11/03/24 03:07 11/03/24 03:22 11/03/24 03:07 11/03/24 03:22
I&O
11/01/24 11/02/24 11/03/24
06:59 06:59 06:59
Intake Total 900 / 900 1380 / 1380
Output Total 1350 / 1350 1200 / 1200 1650 / 1650
Balance -450 / -450 180 / 180 -1650 / -1650
Review of Systems
-
All other systems: Reviewed and negative
Physical Exam
-
General: Well Developed, Well Nourished, No Apparent Distress, Comfortable and Conversant; Negative Respiratory Distress
HEENT: Normocephalic and Atraumatic; Negative Oxygen
Respiratory: Clear to Auscultation and Non Labored Respirations; Negative Accessory Resp Muscle Use
Cardiac: Regular Rhythm and S1/S2
GI: Soft, Nontender, Nondistended and Normal Bowel Sounds
Musculoskeletal: No Cyanosis and No Edema
Skin: Warm and Dry
Neuro: Awake, Alert, Oriented and AO x 3
Psych: Calm and Intact Judgement/Insight
Data Reviewed
-
Medical Tests (Nuc Med, Echo etc): Report Reviewed by me (cath report), Discussed with Physician and Discussed with Patient
Labs: Labs Reviewed by me
[2024-11-03 07:08] VITALS: BP 109/71
[2024-11-03] MEDS: FARXIGA 10 MG PO (08:55)
[2024-11-03] MEDS: LASIX 20 MG PO (08:56)
[2024-11-03] MEDS: OSCAL CAL 500 250 MG PO (08:56)
[2024-11-03] MEDS: TOPROL XL 12.5 MG PO (08:57)
[2024-11-03] MEDS: ProAmatine 5 MG PO ×2 (08:57→13:58)
[2024-11-03] MEDS: VITAMIN D3 (cholecalciferol) 50 MCG PO (08:57)
[2024-11-03] MEDS: FLUSH (NSS) 1 FLUSH IV (08:59)
[2024-11-03 09:14] LABS: Glycohemoglobin (HgbA1c) 5.6 % (4.0-5.6)
--- NOTE | 2024-11-03 10:12 | PTCARENOTE ---
Received patient this morning oob ambulating in the halls. Denies any chest pain or sob, anxious to go home today. Daughter now in visiting, questions answered regarding medications, monitoring BP and discharge planning.
--- NOTE | 2024-11-03 11:53 | W.PN.CARDCBS ---
Addendum entered and electronically signed by Alyssa Fairbanks MD 11/03/24 18:18:
I saw and examined the patient.
The Tar [employer] Am[employer] Pump Operator's note was reviewed and I agree with the note.
Comment: Patient is doing well and has been walking the halls without any limiting chest discomfort or shortness of breath. No recurrent chest pain. She tells me that her dyspnea is significantly better especially with exertion. Her daughter is
with her at bedside. They have significant concerns about her low ejection fraction and medications that we have been able to initiate.
.
Vital signs and lab work reviewed. On exam patient is thin, somewhat frail but otherwise awake, alert and oriented x 3, no acute distress, regular rate, normal S1 and S2, JVP of about 7 to 8 cm of water, lungs are clear to auscultation bilaterally,
abdomen is soft, nontender, nondistended with active bowel sounds, warm extremities without significant edema. Access sites from recent cath without evidence of hematoma or bruit.
.
Recommendations:
1. Lengthy discussion was had with patient and daughter at bedside reviewing all her medications at the time of discharge. Her blood pressure has been the main limiting factor in terms of further optimizing her goal-directed medical therapy for
nonischemic cardiomyopathy.
2. Long-term we discussed that ideally we would want to wean her off midodrine if able if her blood pressures allow and work on adding other medications like ACEi/ARB/ARNI +/- Aldactone.
3. She will be continued on Toprol-XL 12.5 mg daily along with Farxiga 10 mg daily and Lasix 20 mg daily to maintain euvolemia.
4. Referral for cardiac rehab as an outpatient.
5. Outpatient cardiology follow-up later this week with plan for eventual repeat echocardiogram at 3 months when she is optimized medically.
Alyssa Fairbanks MD, [facility]
Original Note:
Today's Communication / Plan
-
cardiac meds at MA:
midodrine 5mg TID
toprol 12.5mg daily
farxiga 10mg daily
lasix 20mg daily
BMP in 1 week
OP follow up with Dr. Dominguez
will need repeat echo in 3 months
Impression / Plan
-
Primary outpt mover helper: Dr. Norma Dominguez [facility]
Impression:
Presents 10/30/2024 with progressively worsening dyspnea on exertion x 2 months and recent chest pain
Nonischemic cardiomyopathy, EF 15-20% on echo 10/30/2024
Nonobstructive coronary artery disease on catheterization 10/30/2024
Abnormal LFTs
Acute heart failure with reduced ejection fraction, proBNP 4900
LBBB diagnosed in 2023
Triple negative breast cancer
Status post bilateral mastectomy 2013
Status post chemo with Adriamycin, cytotaxin and Taxol 2013
IBS
Diverticulitis
Gallstones
Echo 10/30/2024 ([facility]): EF 15-20%, akinetic/dyskinetic septum other zuluaga hypokinetic. NL RV size and function. Stage 2 DD. Mild-moderate MR/TR. Trivial pericardial effusion. Interatrial septum is bowed into right atrial consistent with increased left
atrial pressure. No trans atrial shunt appreciated on doppler.
Echo 10/04/2023 ([facility]): EF 45-50% with top-normal LV size and a septal contraction abnormality. Trivial valvular regurgitation noted
Cardiac catheterization 10/30/2024: Nonobstructive coronary artery disease with left dominant system. Significantly elevated filling pressures,. RA (m) : 11; RV (s/d,m) : 53/12, 20; AO saturation: 97.7% on room air
RA saturation: 79.7 on room air; AO (s/d) : 129/79; LV (s/d) : 126/21; LVEDP : 33; unable to calculate cardiac output/index as [place]-Tej catheter was unable to be advanced from the RV into the PA
Plan:
-Presented 10/30/2024 with progressively worsening dyspnea on exertion x 2 months and recent increase in reflux/GERD symptoms as well as chest pain. OP echo at OSH showed new reduction in EF from 40-45% 09/2023, to 15-20% 10/30/24.
-Underwent cardiac catheterization with nonobstructive CAD 10/30
-was diuresed with IV lasix this admission. has been transitioned to po lasix 20mg daily.
-GDMT limited by hypotension. continue toprol 12.5mg daily, farxiga 10mg daily. consider addition of lisinopril, aldactone as OP as BP tolerates. presently requiring midodrine 5mg TID, wean as OP as able
-CHF education
-BMP in 1 week upon DC
-will need repeat echocardiogram in 3 months. if ejection fraction remains reduced on optimized GDMT would consider BiV ICD (in the setting of NYHA II�III heart failure, left bundle branch block, sinus rhythm)
-also noted to have some PAT/SVT earlier this admission, improved s/p initiation of low dose BB. on review of tele overnight in SR with occasional PVCs.
-has f/u with Dr Dominguez later this week
HPI 10/30/2024:
Patient is a 64-year-old female with past medical history significant for cardiomyopathy, left bundle branch block discovered in 2023, triple negative breast cancer status post bilateral mastectomy and TAHSBO who follows routinely with Dr. Dominguez
of cardiology. Patient reports she recently had diverticulitis flare and required antibiotics. Since that time she has noticed ongoing weight loss and increased indigestion/reflux symptoms. She was seen in emergency department 10/28/2024 with
chest pain radiating into the back. Troponin was negative. CT angiogram no acute pathology in chest, abdomen or pelvis. There was no evidence of aortic dissection. She was noted to have a 4 mm gallstone and an oval hypodense hepatic lesion
likely cyst or hemangioma. Patient was due to see her outpatient mover helper Dr. Norma Dominguez who had her get an echocardiogram today which showed newly reduced ejection fraction of 15 to 20% with progression of valvular disease and she was
referred to emergency department 10/30/2024. EKG admission shows sinus rhythm with left bundle branch block. Laboratory studies were rather unremarkable except mildly elevated AST and ALT 42/60. Troponin was negative. proBNP 4900. She continues
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 Currently she denies chest pain or shortness of breath at rest.
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
Subjective
Date of Service: November 03, 2024
plan for DC today. no CP, SOB
Objective
Labs:
11/03/24 03:14
11/03/24 03:14
Labs
Hgb 14.5 g/dL (12.0-16.0) 11/03/24 03:14
Hct 43.0 % (37.0-47.0) 11/03/24 03:14
Plt Count 289 10^3/uL (130-400) 11/03/24 03:14
PT 13.7 Sec (11.4-14.6) 10/30/24 12:17
INR 1.02 10/30/24 12:17
APTT 26.9 Sec (23.4-35.0) 10/30/24 19:56
Sodium 135 mmol/L (135-145) 11/03/24 03:14
Potassium 4.5 mmol/L (3.5-5.1) 11/03/24 03:14
BUN 29 mg/dl (7-17) H 11/03/24 03:14
Creatinine 0.7 mg/dL (0.6-1.0) 11/03/24 03:14
Glucose 92 mg/dl (70-99) 11/03/24 03:14
Vital Signs and I&O:
Vital Signs
Temp Pulse Resp BP Pulse Ox
98.5 F 67 18 109/71 99
11/03/24 07:11 11/03/24 07:08 11/03/24 07:11 11/03/24 07:08 11/03/24 07:11
Vital Signs
Temp Pulse Resp BP Pulse Ox
98.5 F 67 18 109/71 99
11/03/24 07:11 11/03/24 07:08 11/03/24 07:11 11/03/24 07:08 11/03/24 07:11
Intake & Output
11/01/24 11/02/24 11/03/24 11/04/24
07:59 07:59 07:59 07:59
Intake Total 900 / 900 1380 / 1380
Output Total 1350 / 1350 1200 / 1200 1650 / 1650
Balance -450 / -450 180 / 180 -1650 / -1650
[2024-11-03 11:54] VITALS: BP 102/72
[2024-11-03 13:57] VITALS: BP 95/61
--- NOTE | 2024-11-03 14:02 | W.PN.UPDATE ---
Addendum entered and electronically signed by Angus Tay MD 11/03/24 19:50:
underweight per BMI
Original Note:
Update Note
Progress Note Update
Seen earlier. Late documentation.
I saw and evaluated the patient. I reviewed the resident�s note and agree with findings and plan as documented in the resident�s note except for changes in my documentation
63-year-old female presented with chest pain. She was seen in the ER on 10/28/2024 for the same reason. At that time CT angiogram of the chest abdomen and pelvis and EKG was negative and was discharged. Outpatient follow-up with cardiology and
echo were planned. Echo showed newly reduced EF of 15 to 20% with progression of valvular disease and she was referred to the ER.
Echo 10/30/2024-EF 15 to 20%. Akinetic/dyskinetic septum, other zuluaga hypokinetic. Normal RV size and function. Stage II diastolic dysfunction. Mild to moderate MR/TR. Trivial pericardial effusion. Interatrial septum is bowed to right atrial
secondary to increased left atrial pressure
Cardiac cath 10/30/2024-nonobstructive coronary artery disease with left dominant system. Elevated filling pressure LVEDP 33
Feeling Much better today
CVS: S1-S2 normal
Chest: CTA B/L
Abdomen: Soft, NT / Bowel sounds present
Extremities: No edema
# New diagnosis of nonischemic cardiomyopathy
Outpatient dental surgery doctor Dr. Laura Dudley
Acute HFrEF
10/30/2024-nonobstructive coronary artery disease elevated troponin-nonischemic myocardial injury secondary to CHF
Possible chemo related
Status post heparin drip
proBNP on admission 4900
Started on Toprol-XL 12.5 mg daily, may benefit from ARNI/Aldactone if blood pressure can tolerate-lisinopril started but holding secondary to hypotension
Farxiga added
Seems to be tolerating p.o. Lasix, Farxiga and Toprol-XL with midodrine. No symptoms of dizziness
Patient is aware about symptoms of dizziness, activities
# History of paroxysmal atrial tachycardia/SVT-on beta-blockers
# Mild transaminitis secondary to hepatic congestion-normal now
# History of breast cancer-triple negative status post bilateral mastectomy 2013 and chemotherapy with Adriamycin, cytotaxin and Taxol 2013
# Chronic LBBB
# History of IBS-on hyoscyamine as needed
# Diverticulosis
# Cholelithiasis
# DVT prophylaxis-subcutaneous Lovenox
# Full code
Discussed with nursing
Discussed with cardiology
Discussed with patient's daughter at bedside in detail. She had several questions all were answered
total discharge cordination time over 35 min
--- NOTE | 2024-11-03 14:02 | W.DCSUMMARY ---
Discharge Summary
Discharge Data
Date of Admission: 10/30/24
Date of Discharge: 11/03/24
-
Pending Results: No
Hospital Course
Discharging Physician : Maggi Greco MD ; Kenrick Marley MD
Disposition : Home with VN
Primary care physician : Tatiana Francisco MD
Principal Discharge diagnosis :
Nonischemic cardiomyopathy
HFrEF
History of paroxysmal atrial tachycardia/SVT
Chronic LBBB
History of IBS
Diverticulosis
Cholelithiasis
History of triple negative breast cancer
Hospital Course :
63-year-old female with past medical history of triple negative breast cancer, IBS who presented to the hospital on 10/30/2024 with progressive chest pain. She was seen on 10/28/2024 for some reason and was discharged after normal blood work, CT
angio chest abdomen pelvis and EKG. She proceeded to do an outpatient echocardiography which reported an EF of 15% to 20% with progressive valvular disease after which she was referred to the emergency department. Her proBNP was 4900.
New diagnosis of nonischemic cardiomyopathy: On admission, patient's troponin was elevated at 0.067. She was evaluated with a right and left heart cath which reported significantly elevated right-sided filling pressures. She was treated with
gentle IV fluid and started on heparin drip, Toprol 12.5 mg daily, IV Lasix 40 mg daily with holding parameters due to hypotension. Her Lasix was transitioned to 20 mg oral dose daily, and Farxiga 10 mg daily were added to her regimen. Due to soft
blood pressure, patient was not able to tolerate full GDMT with lisinopril and spironolactone. 5 mg oral midodrine was also added to her regimen. Her blood pressure improved, patient was evaluated by cardiology and was deemed stable for discharge.
She also has an appointment set up with [facility] and has been instructed to follow-up with cardiology outpatient.
Condition on discharge: Awake, alert and oriented x3, answer question properly, able to make own decision and take care of activities of daily living, speech clear and comprehensive, continent of the bowel and bladder, ambulate without nutritional assistant,
goes home where lives with the family independently.
Important imaging findings : Echo 10/30/2024 ([facility]): EF 15-20%, akinetic/dyskinetic septum other zuluaga hypokinetic. NL RV size and function. Stage 2 DD. Mild-moderate MR/TR. Trivial pericardial effusion. Interatrial septum is bowed into right atrial
consistent with increased left atrial pressure. No trans atrial shunt appreciated on doppler.
Procedure findings :
Cardiac catheterization 10/30/2024: Nonobstructive coronary artery disease with left dominant system. Significantly elevated filling pressures,. RA (m) : 11; RV (s/d,m) : 53/12, 20; AO saturation: 97.7% on room air
RA saturation: 79.7 on room air; AO (s/d) : 129/79; LV (s/d) : 126/21; LVEDP : 33; unable to calculate cardiac output/index as [place]j catheter was unable to be advanced from the RV into the PA.
Discharge Plan
-
Patient Disposition: Home with Home Care
Discharge Diagnosis/Procedures: Nonischemic cardiomyopathy
HFrEF
History of paroxysmal atrial tachycardia/SVT
Chronic LBBB
History of IBS
Diverticulosis
Cholelithiasis
History of triple negative breast cancer
Condition: Fair
Diet: 2 Gram Sodium and Restrict fluids to 48 oz
Activity: As tolerated
Driving Restrictions: As prior to admission
Bathing Restrictions: None
Blood Work: BMP in 1 week with results to Dr. Dudley
Others Tests: Echo in 3 months
Other Services: Cardiac Rehab
Specialty Instructions: Weigh Daily- Call MD for wt gain/loss 3 lbs overnight/5 lbs in 1 week
Instructions: *PCP/Other Vp Delivery Heart Failure Instructions
Referrals:
[facility] [Outside] - 12/21/24 1:00 pm
(Cardiac Rehab Orientation appointment is on Saturday December 21, 2024 @ 1:00pm
The Cardiac Rehab gym is located on the first floor of the [facility].)
Tatiana Francisco MD [Family Provider] - in less than 1 week
Norma Dudley MD [Non-Admitting Privileges] - 11/06/24 9:20 am (as scheduled)
Additional Discharge Medication Instructions: Take Farxiga 10 mg by mouth once daily.
Take Lasix 20 mg by mouth once daily
Take metoprolol 25 mg by mouth once daily
Take midodrine 5 mg by mouth 3 times daily as instructed (8 AM, 1 PM, 6 PM)
Prescriptions:
New
dapagliflozin propanediol 10 mg Tablet
10 mg PO DAILY Qty: 30 0RF
furosemide 20 mg Tablet
20 mg PO DAILY Qty: 30 0RF
midodrine 5 mg Tablet
5 mg PO TID@0800,1300,1800 Qty: 90 0RF
metoprolol succinate 25 mg Tablet Extended Release 24 Hr
12.5 mg PO DAILY Qty: 30 0RF
Continued
aspirin 81 mg Tablet,Delayed Release (Dr/Ec)
81 mg PO DAILY
calcium carbonate 500 mg calcium (1,250 mg) Tablet
333.3 mg PO TID
ascorbic acid (vitamin C) [Vitamin C] 500 mg Tablet
500 mg PO BID
hyoscyamine sulfate 0.125 mg Tablet, Sublingual
0.125 mg PO QIDPRN PRN (Reason: spasms)
magnesium oxide 500 mg magnesium Tablet
500 mg PO BID
cholecalciferol (vitamin D3) [Vitamin D3] 50 mcg (2,000 unit) Tablet
50 mcg PO DAILY
Discontinued
ibuprofen [Advil] 200 mg Tablet
400 mg PO Q6HPRN PRN (Reason: mild pain)
Discharge Orders:
Discharge Patient (As Directed); Ordered 11/03/24
Ordered By: Kenrick Marley
Care Plan Goals
Care Plan Goals:
Problem: Readiness for enhanced knowledge related to diagnosis and treatment plan
Goal: Understand your diagnosis and treatment plan needs, including medications if applicable.
Instructions: Know your diagnosis, underlying causes and treatment plan options, including medications if applicable. Consult with your health care team to learn about your diagnosis and treatment plan, including medications if applicable.
Discharge Date and Time
Discharge Date/Time: 11/03/24 15:30
Print Language: WOLOF
--- NOTE | 2024-11-03 14:09 | CM ---
pt is not home bound, will not qualify for VN services
--- NOTE | 2024-11-03 14:30 | PTCARENOTE ---
Patient ambulating in the [place] frequently with her daughter, feels good and anxious to go home. BP 95/60, given dose of scheduled midodrine as ordered. Patient questioning dosage frequency, she thought it was daily. Confirmed with the hospitalist
that she is to continue TID at home and she understands and will monitor her BP at home with a cuff size appropriate for her.
--- NOTE | 2024-11-03 14:43 | PN.CDI ---
CDI
- -
CDI:
Physician Documentation Request
Admit Date: 10/30/24 15:40
Dear Doctor Ayaka,
Clinical Indicators:
Patient admitted with non ischemic cardiomyopathy.
10/31 note: 'UBW reported as 135lb- weight loss experienced over the last 6 months due to OBS flares'
BMI :
11/01/24
03:21 11/02/24
03:57 11/03/24
03:20
Body Mass Index (BMI) 18.4 18.5 18.3
If possible, please provide an associated diagnosis related to the abnormal BMI ( < or = to 19), such as:
Weight Loss
Underweight
BMI is not significant
Other
Use of terms such as suspected, likely, concern for, or probable (associated with a specific diagnosis that is being evaluated, monitored, or treated as if it exists) are acceptable and can be coded in the inpatient setting, when documented at the
time of discharge.
Thank you,
Irais Mc RN BSN
CDI Specialist
available via tiger text
Please use your independent medical judgment in providing your response.
--- NOTE | 2024-11-03 15:49 | PTCARENOTE ---
Reviewed discharge instructions with the patient and her daughter, all questions answered. Patient aware of new medications and schedule, follow up appointments and lab work needed next week. Patient discharged home with her daughter.
--- NOTE | 2024-11-04 10:10 | W.HF.CON ---
Heart Failure
- LV Function
Left ventricular function study result: LV Ejection fraction </= 35%
Ejection Fraction Percentage: 15-20
- ARNI
Patient already on ARNI: No
Heart Failure ARNI Contraindication: Hypotension
- ACEI/ARB
Patient already on ACEI/ARB: No
Heart Failure ACEI/ARB Contraindication: Hypotension
- Beta Lyudmila
Patient already on Evidence Based Beta Lyudmila: Yes
- Mineralocorticord Receptor Antagonist
Patient already on MRA: No
Heart Failure MRA Contraindication: Hypotension
- SGLT-2 Inhibitor
Patient already on SGLT-2 Inhibitor: Yes
- NYHA CHF Classification
NYHA CHF Classification Level: Class III - Symptoms w/ min exertion, interferes w/ nml daily activity
- ACC/AHA Stage
ACC/AHA Stage: Stage C: Symptomatic Heart Failure
== END 2024-11-03 15:30 | disposition home or self-care (01) | DRG 286 ==
LOC: IVU 15:40
PROVIDERS: Emergency Medicine; Internal Medicine; Internal Medicine Cardiovascular Disease; Nurse Practitioner Family; Physician Assistant; Student in an Organized Health Care Education/Training Program; ADMITTING PHYSICIAN Family Medicine; ATTENDING PHYSICIAN Hospitalist; CONSULT PHYSICIAN Internal Medicine Interventional Cardiology; EMERGENCY PHYSICIAN Emergency Medicine; FAMILY PHYSICIAN Family Medicine
PROC: B211YZZ Fluoroscopy of Multiple Coronary Arteries using Other Contrast (ICD-10-PCS; 2024-10-30)
PROC: 4A023N8 Measurement of Cardiac Sampling and Pressure, Bilateral, Percutaneous Approach (ICD-10-PCS; 2024-10-30)
DX: I42.8 Other cardiomyopathies (principal); I50.23 Acute on chronic systolic (congestive) heart failure; Z68.1 Body mass index [BMI] 19.9 or less, adult; I47.19 Other supraventricular tachycardia; I44.7 Left bundle-branch block, unspecified; K58.9 Irritable bowel syndrome, unspecified; I25.10 Atherosclerotic heart disease of native coronary artery without angina pectoris; K76.1 Chronic passive congestion of liver; I34.0 Nonrheumatic mitral (valve) insufficiency; I5A Non-ischemic myocardial injury (non-traumatic); E87.5 Hyperkalemia; K21.9 Gastro-esophageal reflux disease without esophagitis; R63.6 Underweight; Z92.21 Personal history of antineoplastic chemotherapy; Z90.81 Acquired absence of spleen; Z90.13 Acquired absence of bilateral breasts and nipples; Z85.3 Personal history of malignant neoplasm of breast; Z79.82 Long term (current) use of aspirin; Z79.899 Other long term (current) drug therapy
CPT/HCPCS: 76937; 80048; 80053; 80061; 82533; 82962; 83036; 83735; 83880; 84484; 85025; 85027; 85610; 85730; 86803; 93005; 93460; 96374; 97162; 99152; 99153; 99284; C1760; C1769; C1894; Q9967

== ENCOUNTER 2025-01-06 14:11 | Outpatient (RCR) | payer BC, SELFPAY ==
[2024-12-21 14:44] LABS: Glucose - Point of Care 101 mg/dl (70-99)
[2024-12-21 15:37] LABS: Glucose - Point of Care 106 mg/dl (70-99)
[2024-12-23 13:09] LABS: Glucose - Point of Care 117 mg/dl (70-99)
[2024-12-23 13:59] LABS: Glucose - Point of Care 105 mg/dl (70-99)
[2024-12-25 13:06] LABS: Glucose - Point of Care 126 mg/dl (70-99)
[2024-12-25 14:00] LABS: Glucose - Point of Care 95 mg/dl (70-99)
== END 2025-01-06 23:59 | disposition home or self-care (01) ==
LOC: CRHB 14:11
PROVIDERS: ATTENDING PHYSICIAN Internal Medicine Cardiovascular Disease
DX: I50.20 Unspecified systolic (congestive) heart failure (principal)
CPT/HCPCS: 82962; 93797; 93798

== ENCOUNTER 2025-01-29 13:30 | Outpatient (RCR) | payer BC, SELFPAY | END 2025-02-02 11:58 | disposition home or self-care (01) | LOC: CRHB 13:30 | PROVIDERS: ATTENDING PHYSICIAN Internal Medicine Cardiovascular Disease | DX: I50.22 Chronic systolic (congestive) heart failure (principal); I50.20 Unspecified systolic (congestive) heart failure (principal) | CPT/HCPCS: 93797; 93798 ==